=== PATIENT | female | born 1945 | race Caucasian/White ===

== ENCOUNTER 2019-02-12 16:08 | Emergency (ER) | payer MEDICARE, MEDICAID ==
[~2019-02-12] VITALS: Ht 167.6 cm; Wt 68.2 kg
[~2019-02-12 16:08] MED LIST: ASPIRIN 32325 MG/TAB PO; BENADRYL25 M2 PO; BIAXIN 500MG T500 MG PO; DAZIDOX10 MG PO; FLAGYL500 MG PO; NAPROSYN500 MG PO; NORCO 325 MG-7.1 TAB PO; PRILOSEC 20MG20 MG PO; TYLENOL 325MG325 MG PO; ULTRAM 50MG TAB50 MG PO
[2019-02-12 16:22] VITALS: TEMP 98.5
[2019-02-12 17:48] LABS: BASO % 0.6 % (0.0-2.0); EOS # 0.1 (0.0-0.7); EOS % 1.4 % (0-4.0); GRAN # 3.8 (1.4-6.5); GRAN % 52.8 % (42.2-75.2); HEMATOCRIT 42.7 % (37.0-47.0); HEMOGLOBIN 13.4 g/dl (12.5-16.0); LYMPH # 2.5 (1.2-3.4); LYMPH % 34.9 % (20.0-51.0); MEAN CELL VOLUME 95 fl (80.0-100.0); MEAN CORPUSCULAR HEMOGLOBIN 30 pg (27.0-31.0); MEAN CORPUSCULAR HGB CONC 31 g/dl (33.0-37.0); MEAN PLATELET VOLUME 9.3 fl (7.4-10.4); MONO # 0.7 (0.1-0.6); MONO % 10.2 % (1.7-9.3); PLATELET COUNT 332 K/mm3 (130-400); REDCELL DISTRIBUTION WIDTH-CV 14.9 % (11.5-14.5)
[2019-02-12 17:58] LABS: ALBUMIN 4.3 gm/dL (3.5-5.0); BILIRUBIN,TOTAL 0.4 mg/dL (0.0-1.0); C-REACTIVE PROTEIN 1.6 mg/dL (0.0-0.9); CALCIUM 10.3 mg/dL (8.4-10.2); CREATININE, serum 0.58 (0.52-1.25); POTASSIUM 3.8 mmol/L (3.4-5.0)
[2019-02-12] MEDS ORDERED: PROTONIX 40MG T40 MG PO (19:45)
[2019-02-12 20:00] VITALS: BP 177/89; PULSE 88
== END 2019-02-12 20:10 | disposition home or self-care (01) ==
LOC: COL.ER 16:08
PROVIDERS: Emergency Medicine
DX: K59.00 Constipation, unspecified (principal); M06.9 Rheumatoid arthritis, unspecified; Z90.710 Acquired absence of both cervix and uterus; Z90.89 Acquired absence of other organs; Z79.82 Long term (current) use of aspirin
CPT/HCPCS: C9113; J7030; Q9967

== ENCOUNTER 2019-03-14 12:36 | Emergency (ER) | payer MEDICARE, MEDICAID ==
[~2019-03-14] VITALS: Ht 167.6 cm; Wt 80.5 kg
[~2019-03-14 12:36] MED LIST changes: +PROTONIX 40MG T40 MG PO
[2019-03-14 12:50] VITALS: BP 121/49; TEMP 98
[2019-03-14 13:50] LABS: BASO % 0.5 % (0.0-2.0); EOS # 0.2 (0.0-0.7); EOS % 2.3 % (0-4.0); GRAN # 3.2 (1.4-6.5); HEMATOCRIT 39.6 % (37.0-47.0); HEMOGLOBIN 12.7 g/dl (12.5-16.0); LYMPH # 2.2 (1.2-3.4); LYMPH % 34.6 % (20.0-51.0); MEAN CELL VOLUME 94 fl (80.0-100.0); MEAN CORPUSCULAR HEMOGLOBIN 30 pg (27.0-31.0); MEAN CORPUSCULAR HGB CONC 32 g/dl (33.0-37.0); MEAN PLATELET VOLUME 9.2 fl (7.4-10.4); MONO # 0.8 (0.1-0.6); MONO % 12.3 % (1.7-9.3); PLATELET COUNT 282 K/mm3 (130-400); RED BLOOD COUNT 4.21 M/mm3 (4.10-5.30)
[2019-03-14 14:01] LABS: BILIRUBIN,TOTAL 0.4 mg/dL (0.0-1.0); CALCIUM 9.1 mg/dL (8.4-10.2); CREATININE, serum 0.61 (0.52-1.25); POTASSIUM 4.1 mmol/L (3.4-5.0); TOTAL PROTEIN 7.3 gm/dL (6.4-8.2)
[2019-03-14] MEDS ORDERED: LASIX 20MG TABL20 MG PO (15:01)
[2019-03-14 16:17] VITALS: PULSE 91
== END 2019-03-14 16:17 | disposition home or self-care (01) ==
LOC: COL.ER 12:36
PROVIDERS: Emergency Medicine
DX: R60.0 Localized edema (principal); Z79.82 Long term (current) use of aspirin

== ENCOUNTER → 2019-04-18 | Outpatient (CLI) | payer MEDICARE, MEDICAID ==
[~2019-04-18] MED LIST changes: +LASIX 20MG TABL20 MG PO
[2019-04-18 12:03] LABS: BASO % 0.5 % (0.0-2.0); EOS # 0.2 (0.0-0.7); GRAN # 3.2 (1.4-6.5); GRAN % 50.5 % (42.2-75.2); HEMATOCRIT 41.8 % (37.0-47.0); HEMOGLOBIN 13.5 g/dl (12.5-16.0); LYMPH # 1.8 (1.2-3.4); LYMPH % 28.9 % (20.0-51.0); MEAN CELL VOLUME 92 fl (80.0-100.0); MEAN CORPUSCULAR HEMOGLOBIN 30 pg (27.0-31.0); MEAN CORPUSCULAR HGB CONC 32 g/dl (33.0-37.0); MONO # 1.1 (0.1-0.6); MONO % 16.9 % (1.7-9.3); PLATELET COUNT 333 K/mm3 (130-400); RED BLOOD COUNT 4.54 M/mm3 (4.10-5.30); REDCELL DISTRIBUTION WIDTH-CV 14.8 % (11.5-14.5)
[2019-04-18 12:25] LABS: ALBUMIN 4.4 gm/dL (3.5-5.0); BILIRUBIN,TOTAL 0.4 mg/dL (0.0-1.0); CHOLESTEROL RISK RATIO 4.9; CREATININE, serum 0.72 (0.52-1.25); POTASSIUM 4.1 mmol/L (3.4-5.0); TOTAL PROTEIN 8.2 gm/dL (6.4-8.2)
[2019-04-18 12:27] LABS: ERYTHROCYTE SEDIMENTATION RATE 46 mm/hr (0-30)
== END ==
LOC: COL.LAB 11:17
PROVIDERS: Nurse Practitioner Adult Health
DX: Z51.81 Encounter for therapeutic drug level monitoring (principal); M05.9 Rheumatoid arthritis with rheumatoid factor, unspecified; Z79.899 Other long term (current) drug therapy

== ENCOUNTER → 2019-08-06 | Outpatient (CLI) | payer MEDICARE, MEDICAID ==
[2019-08-06 13:36] LABS: BASO % 0.4 % (0.0-2.0); EOS # 0.1 (0.0-0.7); EOS % 1.1 % (0-4.0); GRAN % 52.6 % (42.2-75.2); HEMATOCRIT 38.5 % (37.0-47.0); HEMOGLOBIN 12.4 g/dl (12.5-16.0); LYMPH # 2.7 (1.2-3.4); LYMPH % 36.1 % (20.0-51.0); MEAN CELL VOLUME 93 fl (80.0-100.0); MEAN CORPUSCULAR HEMOGLOBIN 30 pg (27.0-31.0); MEAN CORPUSCULAR HGB CONC 32 g/dl (33.0-37.0); MEAN PLATELET VOLUME 8.6 fl (7.4-10.4); MONO # 0.7 (0.1-0.6); MONO % 9.5 % (1.7-9.3); PLATELET COUNT 398 K/mm3 (130-400); RED BLOOD COUNT 4.13 M/mm3 (4.10-5.30); REDCELL DISTRIBUTION WIDTH-CV 15.9 % (11.5-14.5)
[2019-08-06 13:52] LABS: ALBUMIN 4.4 gm/dL (3.5-5.0); BILIRUBIN,TOTAL 0.5 mg/dL (0.0-1.0); CALCIUM 9.4 mg/dL (8.4-10.2); CREATININE, serum 0.69 (0.52-1.25); TOTAL PROTEIN 8.2 gm/dL (6.4-8.2)
== END ==
LOC: COL.LAB 13:04
PROVIDERS: Nurse Practitioner Adult Health
DX: Z51.81 Encounter for therapeutic drug level monitoring (principal)

== ENCOUNTER 2019-08-20 12:30 | Outpatient (RCR) | payer MEDICARE, MEDICAID | END 2019-11-04 | disposition still patient (30) | LOC: WSPT | DX: I89.0 Lymphedema, not elsewhere classified (principal) ==

== ENCOUNTER 2019-12-10 16:28 | Inpatient (IN) | payer MEDICARE, MEDICAID ==
[~2019-12-10] VITALS: Ht 165.1 cm; Wt 77.9 kg
[2019-12-10 16:51] LABS: BASO # 0.1 (0.0-0.2); BASO % 0.5 % (0.0-2.0); EOS # 0.1 (0.0-0.7); EOS % 0.5 % (0-4.0); GRAN # 7.4 (1.4-6.5); GRAN % 75.9 % (42.2-75.2); LYMPH # 1.7 (1.2-3.4); LYMPH % 17.6 % (20.0-51.0); MEAN CELL VOLUME 91 fl (80.0-100.0); MEAN CORPUSCULAR HGB CONC 31 g/dl (33.0-37.0); MEAN PLATELET VOLUME 9.1 fl (7.4-10.4); MONO # 0.5 (0.1-0.6); MONO % 5.2 % (1.7-9.3); PLATELET COUNT 327 K/mm3 (130-400); RED BLOOD COUNT 3.07 M/mm3 (4.10-5.30); REDCELL DISTRIBUTION WIDTH-CV 15.3 % (11.5-14.5)
[2019-12-10 16:57] LABS: HEMOGLOBIN 8.7 g/dl (12.5-16.0); MEAN CORPUSCULAR HEMOGLOBIN 28 pg (27.0-31.0)
[2019-12-10 17:14] LABS: ALBUMIN 2.9 gm/dL (3.5-5.0); BILIRUBIN,TOTAL 0.4 mg/dL (0.0-1.0); C-REACTIVE PROTEIN 2.3 mg/dL (0.0-0.9); CALCIUM 8.2 mg/dL (8.4-10.2); CREATININE, serum 0.72 (0.52-1.25); POTASSIUM 4.1 mmol/L (3.4-5.0); TOTAL PROTEIN 6.1 gm/dL (6.4-8.2)
[2019-12-10] MEDS ORDERED: BUMEX2 MG PO (17:30)
[2019-12-10] MEDS ORDERED: ATHLETE'S FOOT1% TP (17:31)
[2019-12-10] MEDS ORDERED: PEPCID 20MG TAB20 MG PO (17:32)
[2019-12-10] MEDS ORDERED: MOBIC 7.5MG7.5 MG PO (17:33)
[2019-12-10] MEDS ORDERED: NYAMYC100000 U/G TP (17:33)
[2019-12-10] MEDS ORDERED: OXYCONTIN 20MG20 MG PO (17:34)
[2019-12-10] MEDS ORDERED: K-TAB20 PO (17:35)
[2019-12-10] MEDS ORDERED: RINVOQ ER15 MG PO ×2 (17:36→23:27)
[2019-12-10 18:09] LABS: COLLECTION METHOD CLEAN CATCH
[2019-12-10 18:25] LABS: MUCOUS Present /lpf; PH 6 (5-8); URINE APPEARANCE Hazy; URINE BACTERIA Rare /hpf; URINE BILIRUBIN Negative (NEGATIVE); URINE BLOOD Negative (NEGATIVE); URINE COLOR Yellow; URINE GLUCOSE Negative (NEGATIVE); URINE KETONE Negative (NEGATIVE); URINE LEUKOCYTE ESTERASE Trace (NEGATIVE); URINE NITRATE Negative (NEGATIVE); URINE PROTEIN(semi-quant) Negative (NEGATIVE)
[2019-12-10] MEDS ORDERED: XELJANZ5 MG PO (18:50)
[2019-12-10 20:32] VITALS: BP 108/69; PULSE 105; TEMP 98
--- NOTE | 2019-12-10 21:10 | NUR ---
Patient arrived to medical floor at 2030. Patient up to bedside commode x2 assist. Assessment complete. Lungs clear. Heart sounds normal. Bowels active x4. Pulses present throughout. Bilateral lower extremity edema +2. Patient has left lower extremity dressing in place from foot to below her knee. Refused to allow staff to remove to be assessed. Reports dressing redone today. Right lower extremity has mepilex in place to ankle. Patient reports hit on wheel chair. Refused to allow assessment. INT right forearm without complications. IV fluids will be started as ordered. Patient refused SHAQUILLE/SCD. Medication list from home-unable to state last dates and times. Orientated to medical floor. All questions answered. Attempted admission assessment, answered what patient was able to. Denies other needs at this time. Will monitor.
[2019-12-10 22:19] LABS: HEMATOCRIT 25.1 % (37.0-47.0); HEMOGLOBIN 7.7 g/dl (12.5-16.0)
[2019-12-10 23:59] VITALS: BP 102/63; PULSE 84; TEMP 98.3
[2019-12-11] VITALS (18 sets, daily range): BP systolic 84–125; BP diastolic 42–63; PULSE 68–113; TEMP 97.2–98.5
--- NOTE | 2019-12-11 00:35 | NUR ---
Resting in bed. Denies needs. Call light in reach.
--- NOTE | 2019-12-11 02:37 | NUR ---
Resting in bed. Denies needs. Call light in reach.
--- NOTE | 2019-12-11 06:03 | NUR ---
Patient had uneventful night. Resting in bed this AM. Call light in reach.
--- NOTE | 2019-12-11 07:04 | NUR ---
Report given to NAILA Erwin
[2019-12-11 07:10] LABS: BASO # 0.1 (0.0-0.2); BASO % 0.5 % (0.0-2.0); EOS # 0.3 (0.0-0.7); EOS % 3.4 % (0-4.0); GRAN # 4.2 (1.4-6.5); GRAN % 44.3 % (42.2-75.2); LYMPH # 4.1 (1.2-3.4); LYMPH % 43.3 % (20.0-51.0); MEAN CELL VOLUME 93 fl (80.0-100.0); MEAN CORPUSCULAR HGB CONC 32 g/dl (33.0-37.0); MEAN PLATELET VOLUME 9.4 fl (7.4-10.4); MONO # 0.8 (0.1-0.6); MONO % 8.2 % (1.7-9.3); PLATELET COUNT 276 K/mm3 (130-400); RED BLOOD COUNT 2.33 M/mm3 (4.10-5.30); REDCELL DISTRIBUTION WIDTH-CV 15.6 % (11.5-14.5)
[2019-12-11 07:17] LABS: HEMATOCRIT 21.6 % (37.0-47.0); HEMOGLOBIN 6.8 g/dl (12.5-16.0); MEAN CORPUSCULAR HEMOGLOBIN 29 pg (27.0-31.0)
[2019-12-11 07:21] LABS: ALBUMIN 2.4 gm/dL (3.5-5.0); BILIRUBIN,TOTAL 0.3 mg/dL (0.0-1.0); CALCIUM 7.9 mg/dL (8.4-10.2); CREATININE, serum 0.66 (0.52-1.25); POTASSIUM 4.4 mmol/L (3.4-5.0); TOTAL PROTEIN 5.1 gm/dL (6.4-8.2)
[2019-12-11 07:28] LABS: IRON,SERUM 84 ug/dL (35-150)
[2019-12-11 07:55] LABS: TOTAL IRON BINDING CAPACITY 272 ug/dL (265-497)
--- NOTE | 2019-12-11 09:14 | NUR ---
PATIENT IS CONFUSED. NEXT OF KIN DOES NOT ANSWER HER PHONE. CONSENT CAN NOT BE SIGNED YET
--- NOTE | 2019-12-11 09:58 | NUR ---
Newswriter attended clinical rounds with the team. The patient is alert and oriented. Hospitalist discussed and answered questions with the patient. After rounds, the patient met with the patient to complete initial intake. The patient lives alone in [place]. The patient has a walker and wheelchair. The patient is independent with ADLs. The patient receives assistance from Latricia Gates # [phone] who is employed by [employer] with the [facility] program. The patient's PCP is Dr. Erinn Matthews and patient has medications delivered from [facility]. The patient plans to return home at discharge. The patient would like HHS but the patient is obs at this time. SW attempted to contact the SW with Dr. Matthews's office regarding HHS, left message. The patient does not have advanced directives in the EMR. The patient reports she had three sons, Luciano Alvarez, Miguelangel and Iftikhar Corcker. Iftikhar lives somewhere in [facility] and states Luciano and Miguelangel live "somewhere around here." The patient states she has not had contact with ther sons in over 10 years and she does not want them to make any decision for her. The patient completed a DPOA-HC and designated Latricia. ERNA contacted Latricia to discuss DPOA-HC. She was agreeable to being designated. ERNA and NAILA CARBAJAL witnessed. A copy was placed in the chart. Original and copies provided to the patient. Will continue to follow.
--- NOTE | 2019-12-11 10:20 | NUR ---
The patient is now inpatient status. ERNA met with the patient to present Medicare.gov's list of INTERIOR DESIGN PROGRAM CHAIR in [place]. The patient chose [facility] INTERIOR DESIGN PROGRAM CHAIR. ERNA faxed referral. Will continue to monitor.
--- NOTE | 2019-12-11 14:36 | NUR ---
PATIENT CAME BACK FROM [facility] WITH A STABLE BLOOD PRESSURE. VITALS ALL LOOKED OK AND STABLE. IT WAS FOUND IN THE EGD THAT A DUODENAL ULCER WAS FOUND AND INJECTED WITH EPINEPHRINE. BLOOD PRESSURE WAS 130/85. PATIENT IS AWAKE, ALERT, AND ORIENTATED.
--- NOTE | 2019-12-11 19:11 | NUR ---
PATIENT HAS HAD AN EVENTFUL DAY. PATIENT HAS BEEN UP AND DOWN NUMEROUS TIMES TO USE THE BATHROOM. PATIENT IS ON HER SECOND UNIT OF BLOOD BECAUSE OF HGB DROPPING TO 6.8. HER OCCULT STOOL WAS NEGATIVE. PATIENT HAS NOT HAD A BOWEL MOVEMENT TODAY. SHE WENT FOR AN EGD THAT SHOWED A DUODNEAL ULCER THAT WAS INJECTED WITH EPINEPHRINE. PATIENT HAS SORES/WOUNDS ON HER LEGS BUT WILL NOT LET US VEIW THEM. PATIENT IS UP ONE ASSIST TO THE BEDSIDE COMMODE. PATIENT COMPLAINED ABOUT THE BEDPAN BECAUSE WHEN SHE GOT BACK FROM ENDO TODAY SHE WAS PLACED ON THE BEDPAN AND THIS NURSE DID NOT TELL ANYONE THAT HE WAS ON THE BEDPAN. PATIENT HAS BEEN ALERT AND ORIENTATED TODAY BUT IT HARD OF HEARING AND SOMETIMES HARD TO UNDERSTAND. PATIENT HAS NOT REPORTED ANY PAIN. PATIENT IS ASLEEP AND BLOOD IS INFUSING. WILL REPORT OFF TO CARDIOVASCULAR OPERATING ROOM NURSE.
--- NOTE | 2019-12-11 22:48 | NUR ---
Pt resting in bed, denies pain at this time. pt denies nausea or vomiting as well. stated that she did not eat dinner because she did not like the food. heart sounds are normal, lung sounds have audible wheezing. pt denies shortness of breath, on room air. bilaterall legs are wrapped and pt would not allow removal or assessment of legs. wound on the right heal that is covered. no other needs at this time, will continue to monitor.
--- NOTE | 2019-12-12 01:36 | NUR ---
Pt reported pain all over, gave tylenol prn per JUN. assisted pt to the bedside commode and repositioned back in bed.
[2019-12-12 03:00] VITALS: BP 100/42; PULSE 76; TEMP 98.1
--- NOTE | 2019-12-12 06:04 | NUR ---
pt sleeping in bed most of the night, used the bedside commode several times. gave tylenol prn per JUN for pain. will continue to monitor.
[2019-12-12 07:19] LABS: BASO # 0.1 (0.0-0.2); BASO % 0.6 % (0.0-2.0); EOS # 0.5 (0.0-0.7); GRAN # 5.4 (1.4-6.5); GRAN % 55.6 % (42.2-75.2); LYMPH # 2.9 (1.2-3.4); LYMPH % 30.2 % (20.0-51.0); MEAN CELL VOLUME 91 fl (80.0-100.0); MEAN CORPUSCULAR HGB CONC 33 g/dl (33.0-37.0); MEAN PLATELET VOLUME 9.4 fl (7.4-10.4); MONO # 0.8 (0.1-0.6); MONO % 8.4 % (1.7-9.3); PLATELET COUNT 285 K/mm3 (130-400); RED BLOOD COUNT 3.15 M/mm3 (4.10-5.30); REDCELL DISTRIBUTION WIDTH-CV 15.1 % (11.5-14.5)
[2019-12-12 07:22] LABS: HEMOGLOBIN 9.3 g/dl (12.5-16.0); MEAN CORPUSCULAR HEMOGLOBIN 30 pg (27.0-31.0)
[2019-12-12 07:23] LABS: HEMATOCRIT 28.6 % (37.0-47.0)
[2019-12-12 07:42] LABS: CREATININE, serum 0.62 (0.52-1.25); POTASSIUM 3.5 mmol/L (3.4-5.0)
[2019-12-12 08:02] VITALS: BP 103/40; PULSE 80; TEMP 98.2
--- NOTE | 2019-12-12 09:19 | NUR ---
The patient's nurse informed this Glove Factory Sewer that the patient would like [facility] vs [facility]. ERNA to fax referral.
--- NOTE | 2019-12-12 09:48 | NUR ---
Pt assessment completed and charted. Medications administered per jun. Pt is uncooperative w/ care, difficult to understand when speaking sometimes, cursing at this nurse and staff. Pt refuses to lay in bed, states she "has to be moving around". Pt refuses to move to recliner. Pt refused breakfast except for banana but stated she had some indigestion. Pt had EGD yesterday. Pt is alert and mostly oriented, needs constant redirection, doesn't follow conversation. LH IV w/ NS at 100ml/hr running w/o complications. Pt on room air, breathing is even and unlabored, denies SOB, N/V/D, dizziness. Pt had small BM, 2 assist w/ gait belt to bedside commode. Rt heel has mepilex dressing. Bilateral legs covered and wrapped, per pt was done on Sunday and is to stay wrapped for 1 week, pt will not allow wraps/dressing to be removed for assessment. LLE > RLE for edema. BS active, LS cta, heart RRR. Awaiting therapy to work with patient and then figure out POC/discharge. Dr. Matthews called this nurse to discuss having [facility] instead of [facility], this nurse notified Sw and hospitalist. No further needs at this time. Call light within reach. Bed alarm on.
--- NOTE | 2019-12-12 11:07 | NUR ---
First visit from the hotel operations manager. No needs right now.
[2019-12-12 11:32] VITALS: BP 84/60; PULSE 87; TEMP 97.8
[2019-12-12 13:19] LABS: HEMOGLOBIN 9.6 g/dl (12.5-16.0)
[2019-12-12 14:22] VITALS: BP 105/54
[2019-12-12] MEDS ORDERED: FERROUS SU325 MG/TAB PO (14:25)
[2019-12-12] MEDS ORDERED: PROTONIX 40MG T40 MG PO (14:28)
[2019-12-12] MEDS ORDERED: TYLENOL 500MG500 MG PO (14:28)
[2019-12-12] MEDS ORDERED: ZOFRAN ODT4 MG PO (14:29)
--- NOTE | 2019-12-12 15:15 | NUR ---
Pt more cooperative throughout day, pt 1 assist to bedside commode, up a couple of times, good output. Pt tolerated lunch well. Low BP obtained for noon vitals, rechecked, VSS. No further needs.
--- NOTE | 2019-12-12 16:13 | NUR ---
Pt dischrge instructions discussed w/ patient family member who verbalized understanding. All questions answered. LFA and RFA INT IV dc'd w/o complications and catheter tips intact. Pt had questions regarding insurance, Caroline w/ ERNA came in to talk to patient and answer all questions. Pt escorted down to ER w/ all her belongings by WC. No further needs expressed.
--- NOTE | 2019-12-12 16:31 | NUR ---
The patient is to discharge home today, 12/11 with [facility]. PT/OT/Nursing. [facility]. The patient has had negative behavior towards staff. Closing Manager contacted Merle the ERNA at Dr. Matthews's office to provide this update. Dr. Matthews's nurse choses [facility] for the patient. ERNA faxed referral. [facility] accepts the patient for services. ERNA updated Merle. ERNA faxed [facility] discharge orders. There are no additional needs at this time.
--- NOTE | 2019-12-22 14:31 | NUR ---
Pt called me today remembering that I had told her to call if she needed anything from us. Pt is not happy with her home health care because they will not work with her on her compression air stocking. I have spoken with Latricia her DP-HC, the wound care clinic, and with [facility]. Ivania fired [facility] on Monday 12/18. She has an appt with Dr Luo on 01/06 as may change doctors. Latricia has indicated that pt is non-compliant with some of her and does not do a lot of things herself. Ivania kept saying "I need home health to clean my house and help me with the air stockings". She is not interested in PT/OT. I also spoke with Caroline ROSALES about this situation. I left it with Ivania that if she and Latricia had another home health agency that they would like for us to send a referral to, they just need to let us know. I did bring up the subject of a facility for her to move to but she was not interested in that.
--- NOTE | 2019-12-24 14:00 | NUR ---
Pt has made multiple calls to my phone now demanding help and that I listen to her. Today she is insisting that medicare will pay for everything that she needs. I had told her yesterday, and I restated today that we will be happy to send a referral to a home health agency of her choosing to provide services for her based on their acceptance. [facility] did advise me on 12/21 that she had fired them because they weren't doing what she wanted. Pt has called multiple times very angry using derogatory names demanding I do something about this. I have explained to her that Medicare has rules that all agencies must follow. I can only help her at this point with a referral to home health agency of her choosing. This has been coordinated with Caroline ROSALES. I have tried to make this clear to Ivania but she continues to call in the same manner.
--- NOTE | 2019-12-25 11:14 | NUR ---
I recieved another call from pt today. She tells me to listen to her and not talk. She did not like the home health people who came into her house and she told them to leave and not come back--she insists that she did not fire them. I repeated one more time that I would help her by sending referral to another home health agency of her choice. She replied that I was not helping her and hung up.
--- NOTE | 2019-12-25 11:22 | NUR ---
Truck And Transport Mechanic collaborated with RN, Roopa about patient. Roopa reports she did a discharge follow up call with patient and she has fired her home health agency and has been non compliant with follow up. ERNA notifed ERNA Bloom at [facility] and also made report to APS (intake [id number]).
== END 2019-12-12 16:15 | disposition home or self-care (01) | DRG 379 ==
LOC: COL.ER 16:28 → MEDICAL 18:14
PROVIDERS: Family Medicine; Physician Assistant; ADMIT Internal Medicine
DX: K26.4 Chronic or unspecified duodenal ulcer with hemorrhage (principal); I95.9 Hypotension, unspecified; R53.81 Other malaise; G89.29 Other chronic pain; K59.00 Constipation, unspecified; D50.0 Iron deficiency anemia secondary to blood loss (chronic); M06.9 Rheumatoid arthritis, unspecified; Z90.89 Acquired absence of other organs; Z96.651 Presence of right artificial knee joint; Z98.1 Arthrodesis status; Z87.891 Personal history of nicotine dependence
CPT/HCPCS: 99223-AI; 99233-AI; 99239; C9113; G0378; J0171; J2405; J2704; J7030; J7120; P9016

== ENCOUNTER → 2020-04-21 | Outpatient (CLI) | payer MEDICARE, MEDICAID ==
[~2020-04-21] MED LIST changes: +ATHLETE'S FOOT1% TP; +BUMEX2 MG PO; +FERROUS SU325 MG/TAB PO; +K-TAB20 PO; +MOBIC 7.5MG7.5 MG PO; +NYAMYC100000 U/G TP; +OXYCONTIN 20MG20 MG PO; +PEPCID 20MG TAB20 MG PO; +RINVOQ ER15 MG PO; +TYLENOL 500MG500 MG PO; +XELJANZ5 MG PO; +ZOFRAN ODT4 MG PO
== END ==
LOC: ZCOL.LAB 16:26
DX: I83.009 Varicose veins of unspecified lower extremity with ulcer of unspecified site (principal)

== ENCOUNTER 2020-06-18 11:38 | Emergency (ER) | payer MEDICARE, MEDICAID ==
[~2020-06-18] VITALS: Ht 167.6 cm; Wt 72.7 kg
[2020-06-18 11:41] VITALS: TEMP 97.4
[2020-06-18 12:47] LABS: BASO % 0.3 % (0.0-2.0); EOS % 0.5 % (0-4.0); GRAN # 5.1 (1.4-6.5); GRAN % 79.1 % (42.2-75.2); HEMOGLOBIN 12.1 g/dl (12.5-16.0); LYMPH # 0.7 (1.2-3.4); LYMPH % 10.8 % (20.0-51.0); MEAN CELL VOLUME 92 fl (80.0-100.0); MEAN CORPUSCULAR HEMOGLOBIN 31 pg (27.0-31.0); MEAN CORPUSCULAR HGB CONC 33 g/dl (33.0-37.0); MEAN PLATELET VOLUME 9.1 fl (7.4-10.4); MONO # 0.6 (0.1-0.6); PLATELET COUNT 337 K/mm3 (130-400); RED BLOOD COUNT 3.97 M/mm3 (4.10-5.30); REDCELL DISTRIBUTION WIDTH-CV 15.2 % (11.5-14.5)
[2020-06-18 12:52] LABS: HEMATOCRIT 36.6 % (37.0-47.0)
[2020-06-18 12:57] LABS: ALANINE AMINOTRANSFERASE 18 U/L (4-34); ALBUMIN 4.1 gm/dL (3.5-5.0); ALKALINE PHOSPHATASE 133 U/L (50-136); ANION GAP 8 mmol/L (7-16); AST,SGOT 38 U/L (15-37); BILIRUBIN,TOTAL 0.8 mg/dL (0.0-1.0); BLOOD UREA NITROGEN 12 mg/dL (7-17); CALCIUM 9.3 mg/dL (8.4-10.2); CARBON DIOXIDE 27 mmol/L (22-30); CHLORIDE 108 mmol/L (98-107); GLUCOSE 110 mg/dL (74-106); POTASSIUM 3.7 mmol/L (3.4-5.0); SODIUM 142 mmol/L (137-145); TOTAL PROTEIN 8.1 gm/dL (6.4-8.2)
[2020-06-18 13:11] LABS: TROPONIN-I < 0.012 ng/mL (0.000-0.035)
[2020-06-18 14:30] LABS: COLLECTION METHOD CLEAN CATCH
[2020-06-18 14:38] LABS: MUCOUS Present /lpf; PH 5 (5-8); URINE APPEARANCE Hazy; URINE BACTERIA Rare /hpf; URINE BILIRUBIN Negative (NEGATIVE); URINE BLOOD 2+ (NEGATIVE); URINE COLOR Yellow; URINE GLUCOSE Negative (NEGATIVE); URINE KETONE Trace (NEGATIVE); URINE LEUKOCYTE ESTERASE 1+ (NEGATIVE); URINE NITRATE Negative (NEGATIVE); URINE PROTEIN(semi-quant) Negative (NEGATIVE); URINE RBC 20-50 /hpf; URINE UROBILINOGEN >=4.0 mg/dL (NEGATIVE)
[2020-06-18] MEDS ORDERED: CIPRO 250MG TA250 MG PO (14:43)
[2020-06-18 16:14] VITALS: BP 119/71; PULSE 81
== END 2020-06-18 14:57 | disposition home or self-care (01) ==
LOC: COL.ER 11:38
PROVIDERS: Physician Assistant
DX: G89.29 Other chronic pain (principal); M25.552 Pain in left hip; N39.0 Urinary tract infection, site not specified; R41.82 Altered mental status, unspecified; Z88.0 Allergy status to penicillin

== ENCOUNTER 2020-06-26 00:57 | Emergency (ER) | payer MEDICARE, MEDICAID ==
[~2020-06-26] VITALS: Ht 162.6 cm; Wt 90.9 kg
[~2020-06-26 00:57] MED LIST changes: +CIPRO 250MG TA250 MG PO
[2020-06-26 02:55] VITALS: BP 110/66; PULSE 86; TEMP 98
== END 2020-06-26 02:55 | disposition home or self-care (01) ==
LOC: COL.ER 00:57
DX: M25.552 Pain in left hip (principal); G89.29 Other chronic pain; I10 Essential (primary) hypertension; Z90.89 Acquired absence of other organs; Z87.891 Personal history of nicotine dependence; Z88.0 Allergy status to penicillin
CPT/HCPCS: J2060; J3010

== ENCOUNTER → 2020-07-30 | Outpatient (CLI) | payer OTHER, MEDICAID ==
[~2020-07-30] MED LIST changes: +CLEOCIN HCL300 MG PO
== END ==
LOC: ZCOL.LAB 10:46
DX: D75.81 Myelofibrosis (principal)

== ENCOUNTER 2020-08-26 12:57 | Emergency (ER) | payer MEDICARE, MEDICAID ==
[~2020-08-26] VITALS: Ht 167.6 cm; Wt 72.7 kg
[~2020-08-26 12:57] MED LIST changes: -CLEOCIN HCL300 MG PO
[2020-08-26 13:12] VITALS: BP 120/70; PULSE 98; TEMP 98.2
[2020-08-26 14:02] LABS: BASO # 0.1 (0.0-0.2); BASO % 0.7 % (0.0-2.0); EOS # 0.2 (0.0-0.7); EOS % 2.5 % (0-4.0); GRAN # 6.8 (1.4-6.5); GRAN % 69.5 % (42.2-75.2); HEMATOCRIT 37.6 % (37.0-47.0); HEMOGLOBIN 11.4 g/dl (12.5-16.0); LYMPH # 1.7 (1.2-3.4); LYMPH % 17.1 % (20.0-51.0); MEAN CELL VOLUME 94 fl (80.0-100.0); MEAN CORPUSCULAR HEMOGLOBIN 29 pg (27.0-31.0); MEAN CORPUSCULAR HGB CONC 30 g/dl (33.0-37.0); MEAN PLATELET VOLUME 9.1 fl (7.4-10.4); MONO % 9.9 % (1.7-9.3); PLATELET COUNT 403 K/mm3 (130-400); REDCELL DISTRIBUTION WIDTH-CV 16.1 % (11.5-14.5)
[2020-08-26 14:05] LABS: INR 1.2 (0.8-3.0); PROTHROMBIN TIME 12.8 SECONDS (9.7-12.8)
[2020-08-26 14:08] LABS: PARTIAL THROMBOPLASTIN TIME 26.9 SECONDS (26.0-37.0)
[2020-08-26 14:23] LABS: ALBUMIN 3.7 gm/dL (3.5-5.0); BILIRUBIN,TOTAL 0.4 mg/dL (0.0-1.0); CALCIUM 8.9 mg/dL (8.4-10.2); CREATININE, serum 0.66 (0.52-1.25); TOTAL PROTEIN 7.8 gm/dL (6.4-8.2)
[2020-08-26] MEDS ORDERED: CLEOCIN HCL300 MG PO (15:22)
[2020-08-26 15:23] LABS: D-DIMER > 5250.00 ng/mLDDu (200-230)
== END 2020-08-26 15:45 | disposition home or self-care (01) ==
LOC: COL.ER 12:57
PROVIDERS: Emergency Medicine
DX: M79.605 Pain in left leg (principal); M79.89 Other specified soft tissue disorders; R79.1 Abnormal coagulation profile; Z98.1 Arthrodesis status

== ENCOUNTER 2021-04-18 23:07 | Emergency (ER) | payer MEDICARE, MEDICAID ==
[~2021-04-18] VITALS: Ht 167.6 cm; Wt 64.1 kg
[~2021-04-18 23:07] MED LIST changes: +CLEOCIN HCL300 MG PO
[2021-04-18 23:10] VITALS: TEMP 98
[2021-04-18 23:56] LABS: ALBUMIN 3.2 gm/dL (3.4-4.8); BILIRUBIN,TOTAL 0.3 mg/dL (0.2-1.2); CALCIUM 8.9 mg/dL (8.4-10.2); CREATININE, serum 0.71 mg/dL (0.57-1.11); POTASSIUM 4.1 mmol/L (3.5-4.5); TOTAL PROTEIN 7.2 gm/dL (6.2-8.1)
[2021-04-19 01:57] VITALS: BP 145/77; PULSE 72
== END 2021-04-19 01:57 | disposition home or self-care (01) ==
LOC: COL.ER 23:07
PROVIDERS: Emergency Medicine
DX: R60.0 Localized edema (principal); R79.0 Abnormal level of blood mineral; M25.50 Pain in unspecified joint; G89.29 Other chronic pain; Z98.1 Arthrodesis status; Z79.891 Long term (current) use of opiate analgesic
CPT/HCPCS: J1940

== ENCOUNTER 2021-08-08 03:45 | Emergency (ER) | payer MEDICARE, MEDICAID ==
[~2021-08-08] VITALS: Ht 167.6 cm; Wt 81.8 kg
[2021-08-08 03:46] VITALS: TEMP 98.1
[2021-08-08 04:08] LABS: BASO % 0.4 % (0.0-2.0); EOS # 0.1 K/mm3 (0.0-0.7); EOS % 0.7 % (0.0-4.0); GRAN % 66.7 % (42.2-75.2); HEMOGLOBIN 11.9 g/dl (12.5-16.0); LYMPH # 1.2 K/mm3 (1.2-3.4); LYMPH % 15.7 % (20.0-51.0); MEAN CELL VOLUME 91 fl (80.0-100.0); MEAN CORPUSCULAR HEMOGLOBIN 30 pg (27-31); MEAN CORPUSCULAR HGB CONC 33 g/dl (33.0-37.0); MEAN PLATELET VOLUME 9.1 fl (7.4-10.4); MONO # 1.2 K/mm3 (0.1-0.6); MONO % 16.4 % (1.7-9.3); PLATELET COUNT 314 K/mm3 (130-400); RED BLOOD COUNT 3.92 M/mm3 (4.10-5.30); REDCELL DISTRIBUTION WIDTH-CV 15.6 % (11.5-14.5)
[2021-08-08 04:16] LABS: HEMATOCRIT 35.7 % (37.0-47.0)
[2021-08-08 04:22] LABS: ALBUMIN 3.4 gm/dL (3.4-4.8); BILIRUBIN,TOTAL 0.3 mg/dL (0.2-1.2); CREATININE, serum 0.84 mg/dL (0.57-1.11); POTASSIUM 3.7 mmol/L (3.5-4.5)
[2021-08-08 04:28] LABS: TROPONIN-I 0.01 ng/mL (0.00-0.033)
[2021-08-08 05:20] LABS: COLLECTION METHOD CLEAN CATCH
[2021-08-08 05:29] LABS: PH 7 (5-8); SQUAMOUS EPITHELIAL 0-2 /hpf (0-10); URINE APPEARANCE Clear (CLEAR/HAZY); URINE BACTERIA None Seen /hpf (NONE SEEN); URINE BILIRUBIN Negative (NEGATIVE); URINE BLOOD 1+ (NEGATIVE); URINE COLOR Straw (YELLOW); URINE GLUCOSE Negative (NEGATIVE); URINE KETONE Negative (NEGATIVE); URINE LEUKOCYTE ESTERASE Negative (NEGATIVE); URINE NITRATE Negative (NEGATIVE); URINE PROTEIN(semi-quant) Negative (NEGATIVE); URINE UROBILINOGEN Negative (NEGATIVE)
[2021-08-08] MEDS ORDERED: CLEOCIN HCL300 MG PO ×2 (06:40→08:29)
[2021-08-08 08:20] VITALS: BP 115/50; PULSE 84
--- NOTE | 2021-08-08 11:01 | NUR ---
transfer worker met with patient after receiving consult. Patient reports that she was living at [facility] "independent living" but checked herself out. Since then, she has been living on her own in an apartment. Patient states that she was walking until she got the infection in her legs and since then has been wheelchair bound. Per ER nursing staff, the patient is able to transfer herself. Patient reports that she currently has someone coming in to her home twice a week to assit with showering and physical therapy, however the patient is unable to tell me what agency it is with. She reports to being able to "cook her own meals, do her own laundry and her own dishes". Patient relies on [facility] tranportation to get to and from appointments and shopping. Patient reports that her emergency contact Larticia ([phone]) was her elect equip maint eng for a long time but hasn't been "around recently". Attempt made to contact Latricia and message left. Patient states that she has 3 sons but doesn't have anything to do with them because "they're bad people". She does not know where they live and has no phone numbers for them. She is able to provide me their names ; Luciano and Miguelangel Kim and Iftikhar Abelino. SW contacted DARNELL Martinez at [facility] who advises that the patient is not established at their clinic. ER nursing staff had the patients PCP listed as Dr. Erinn Matthews. Contact made with DARNELL Fernandez at [facility] who has a note in the patients chart that in March of 2020 the patient switched PCP to . Message left for Dr.Shamburgs YOO. Patient is to discharge home today. LIP CUTTER AND SCORER contacted [facility] transportation to pick the patient up and EMS will meet the patient at her apartment for transfer assistance. APS report made: C#[id number]
== END 2021-08-08 10:28 | disposition home or self-care (01) ==
LOC: COL.ER 03:45
PROVIDERS: Emergency Medicine
DX: L03.116 Cellulitis of left lower limb (principal); R79.1 Abnormal coagulation profile; Z88.0 Allergy status to penicillin; Z20.822 Contact with and (suspected) exposure to COVID-19
CPT/HCPCS: Q9967

== ENCOUNTER 2021-12-23 12:53 | Inpatient (IN) | payer MEDICARE, MEDICAID ==
[~2021-12-23] VITALS: Ht 167.6 cm; Wt 72.7 kg
[~2021-12-23 12:53] MED LIST changes: +AMOXICILLIN 8751 TAB PO; +CELEBREX 1100 MG/CAP PO; +DOXYCYCLINE 10100 MG PO; +K-DUR20 MEQ PO; +LIPITOR 10MG10 MG PO; +PROBIOTIC BLEN1 EACH PO
[2021-12-23 14:45] LABS: BASO % 0.5 % (0.0-2.0); EOS # 0.1 K/mm3 (0.0-0.7); EOS % 1.1 % (0.0-4.0); GRAN # 5.3 K/mm3 (1.4-6.5); GRAN % 70.4 % (42.2-75.2); HEMATOCRIT 37.8 % (37.0-47.0); HEMOGLOBIN 12.2 g/dl (12.5-16.0); LYMPH # 1.2 K/mm3 (1.2-3.4); LYMPH % 16.5 % (20.0-51.0); MEAN CELL VOLUME 90 fl (80.0-100.0); MEAN CORPUSCULAR HEMOGLOBIN 29 pg (27-31); MEAN CORPUSCULAR HGB CONC 32 g/dl (33.0-37.0); MEAN PLATELET VOLUME 9.1 fl (7.4-10.4); MONO # 0.8 K/mm3 (0.1-0.6); MONO % 11.2 % (1.7-9.3); PLATELET COUNT 358 K/mm3 (130-400); RED BLOOD COUNT 4.21 M/mm3 (4.10-5.30); REDCELL DISTRIBUTION WIDTH-CV 16.5 % (11.5-14.5)
[2021-12-23 15:05] LABS: BILIRUBIN,TOTAL 0.5 mg/dL (0.2-1.2); C-REACTIVE PROTEIN 4.67 mg/dL (0.00-0.50); CALCIUM 9.2 mg/dL (8.4-10.2); CREATININE, serum 0.65 mg/dL (0.57-1.11); POTASSIUM 4.6 mmol/L (3.5-4.5); TOTAL PROTEIN 6.9 gm/dL (6.2-8.1)
[2021-12-23 15:27] LABS: ERYTHROCYTE SEDIMENTATION RATE 50 mm/hr (0-30)
--- NOTE | 2021-12-23 18:43 | NUR ---
Pt up to the floor at this time. She is hard of hearing. Unable to verify medications and patient does not have a list. Attempted to call pharmacy to verify, closed at this time. Attempted to update it based on filled medications. Pt on RA. No SOB. LLE swollen with ulcers. Does not have pain at this time. Denies further needs. Call light within reach.
[2021-12-23 19:39] VITALS: BP 100/64; PULSE 89; TEMP 98.6
--- NOTE | 2021-12-23 20:00 | NUR ---
Pt up to the bedside commode with assistance. Shift assessment completed. A&O x4. Speech difficult to understand. Left leg elevated and cold pack offered to help with burning sensation. Right antecubital peripheral line CDI, no edema or redness. Pt verbalizes that she can use her call light whenever she needs pain medication. Call light within reach.
--- NOTE | 2021-12-23 20:00 | NUR ---
Pt got assistance to use bedside commode. VSS. A&O x4. Shift assessment completed. Left leg red and with multiple open ulcers. Speech difficult to understand. Right antecubital peripheral line. Pt denies any other discomfort or pain at this moment. Fall restriction remain in place. Call light within reach.
[2021-12-24 00:12] VITALS: BP 117/70; PULSE 100; PULSE 82; TEMP 97.5
[2021-12-24 03:50] VITALS: BP 141/49; PULSE 82; PULSE 822; TEMP 97.8
--- NOTE | 2021-12-24 06:14 | NUR ---
At beginning of shift, BP low, 86/48 on left arm, 100/64 on right. Notified ALFREDO Lee. New order for 500 ml bolus given. No further hypotension noted this shift.
[2021-12-24 06:34] LABS: BASO # 0.1 K/mm3 (0.0-0.2); BASO % 0.7 % (0.0-2.0); EOS # 0.2 K/mm3 (0.0-0.7); EOS % 3.4 % (0.0-4.0); GRAN # 4.4 K/mm3 (1.4-6.5); GRAN % 63.9 % (42.2-75.2); HEMOGLOBIN 11.1 g/dl (12.5-16.0); LYMPH # 1.4 K/mm3 (1.2-3.4); LYMPH % 20.1 % (20.0-51.0); MEAN CELL VOLUME 93 fl (80.0-100.0); MEAN CORPUSCULAR HEMOGLOBIN 30 pg (27-31); MEAN CORPUSCULAR HGB CONC 32 g/dl (33.0-37.0); MEAN PLATELET VOLUME 9.8 fl (7.4-10.4); MONO # 0.8 K/mm3 (0.1-0.6); MONO % 11.6 % (1.7-9.3); PLATELET COUNT 331 K/mm3 (130-400); RED BLOOD COUNT 3.76 M/mm3 (4.10-5.30); REDCELL DISTRIBUTION WIDTH-CV 16.6 % (11.5-14.5)
[2021-12-24 06:50] LABS: CALCIUM 8.6 mg/dL (8.4-10.2); CREATININE, serum 0.59 mg/dL (0.57-1.11); POTASSIUM 4.1 mmol/L (3.5-4.5)
[2021-12-24 06:53] LABS: HEMATOCRIT 34.9 % (37.0-47.0)
--- NOTE | 2021-12-24 07:03 | NUR ---
Potassium yesterday was 4.6. Clarified with ALFREDO Lee if she wanted scheduled Potassium to be given. Stated to see what lab results were this morning, and if Potassium is 4.6 or higher, hold potassium. Result this morning 4.1. Medication to be given.
[2021-12-24 07:24] VITALS: BP 104/65; PULSE 59; TEMP 97.5
--- NOTE | 2021-12-24 10:37 | NUR ---
PATIENT EXREMELY VERBALLY ABUSIVE. HAS CALLED THE PCT A "STUPID FUCKING BITCH" MUTIPLE TIMES. SHE HAS SCREAMED AT THIS RN AND PCT FIONA FREQUENTLY. USUALLY HAPPENS WHEN SHE IS GETTING UP TO USE THE BATHROOM, WHICH REQUIRES 2 PERSON ASSIST. WHEN ATTEMPTING TO FIND OUT HOW SHE GETS TO THE BATHROOM AT HOME (SINCE SHE LIVES ALONE) SHE STATED "I DONT WANT TO TALK TO YOU IDIOTS." CHARGE NURSE AWARE AND WILL SPEAK WITH PATIENT.
[2021-12-24 11:44] VITALS: BP 110/56; PULSE 98; TEMP 97.5
--- NOTE | 2021-12-24 11:45 | NUR ---
PATIENT CALLED TO USE RESTROOM AGAIN. UPON ENTERING THE ROOM PATIENT WAS YELLING AND HAS CONTINUED TO BE VERBALLY ABUSIVE. SHE IS CURRENTLY MAD THAT SHE HAD TO WAIT FOR US TO COME TO HER ROOM (BOTH PCT AND I WERE BUSY IN A SEPEATE ROOM AND CAME PILO). WE ASKED IF SHE WOULD LIKE TO TRY A PURE WICK SO SHE COULD URINATE WITHOUT NEEDING TO WAIT ON US. SHE GOT EXTREMLY UPSET. EVEN AFTER EDUCATING HER MANY TIMES ON ITS USE SHE WAS SCREAMING SHE DOESNT WANT A "DILDO."
--- NOTE | 2021-12-24 13:30 | NUR ---
THIS RN AND PCT WENT TO TAKE PATIENT TO THE BATHROOM. AFTER GETTING HER SAFELY TOTHE BEDSIDE COMMODE, SHE STATED SHE CAMT BELIEVE SHE HAS TO GET IN THAT "NASTY ASS BED." WE ASKED WHATS WRONG WITH IT AND REMINDED HER SHE HAD A BED CHANGE THIS MORNING. SHE POINTED TO THE PAD ON THE BED, THAT WAS SLIGHTLY WRINKLED AND BEGAN TO YELL. WE CHANGED HER CLEAN PAD AGAIN AND GOT HER ADJUSTED COMFORTABLY BACK INTO BED.
--- NOTE | 2021-12-24 13:41 | NUR ---
Dirt Contractor rounds: Dirt Contractor visit attempted. CAMPUS SUPERVISOR were toileting Patient on bedside commode. Dirt Contractor visit not conducted.
--- NOTE | 2021-12-24 14:00 | NUR ---
PATIENT STILL BEING VERBALLY ABUSIVE, EVEN AFTER SPEAKING WITH CHARGE NURSE. STATING SHE WANTS BETTER FOOD AND SERIVE AND WANTS TO SPEAK WITH THE PHYSICIAN REGARDING THESE ISSUES. I INFORMED HER THAT THE PHYSICIAN IS CURRENTLY ROUNDING ON ALL OF HIS PATIENTS, HE DID HER EARLIER. SHE IS STILL AGITATED SAYING SHEW WANTS TO GO TO [facility]. I INFORMED HER SHE IS GETTING THE CARE SHE NEEEDS HERE. WE MAKE SURE SHE HAS FOOD ORDERED TO HER ROOM, COME EACH TIME SHE CALLS FOR THE [facility] COMMODE, WE ARE GIVING HER HOME PAIN MEDICATION, WHICH SHE AGREES IS CONTROLLING HER PAIN, AND SHE IS RECIEVING THE IV ANTIBIOTCS SHE NEEDS FOR HER LLE CELLULITIS. SHE BEGAN TO YELL AGAIN THAT SHE WANTS TO LEAVE, THIS RN LEFT TO ALLOW HER TO CALM DOWN. YOUSIF CONT TO MONITOR.
--- NOTE | 2021-12-24 15:19 | NUR ---
dredge worker met with patient to complete intake and discuss discharge plan. Patient reports that she lives at home in an apartment alone here in [place]. She reports that she is able to cook her own meals, do the dishes and complete most of her ADL's. She states at home she is able to utilize the bathroom on her own with the assistance of a toilet riser. She has a home health aid that comes in twice a week from [address] [place] [address] to help her clean, do laundry and provides her with a shower. She has a shower chair. Her friend Latricia comes in to check on her throughout the week. PCP is and she utilizes [facility] for prescriptions. Patient does have a DPOA-HC established listing her friend Latricia. Per nursing staff, patient has been verbally aggressive towards them today. SW spoke at length with the patient about this. Patient expresses frustration over the infection in her legs and that it keeps coming back. She makes the statement " the doctors are not doing anything for it". She verbalizes great fear over losing her legs. SW validated the patient's feelings and provided emotional support. Patient also verbalizes frustration that she cannot have the commode at her bedside. I explained to the patient that her safety is what is important at this time, but i would speak her her RN about this. SW informed the patient that she has physical therapy ordered that they might recommend long term for her. Patient verbalizes that she is open to going to an assisted living, but recognizes that she needs more care then that. She was previously at [facility] in , and did not like it there. Educated the patient that we can look at [place] facilities if PT/OT do recommend SNF. Discharge plan: Pending PT/OT evals. Patient could benefit from SNF or LTC.
[2021-12-24 15:59] VITALS: BP 99/46; PULSE 53; TEMP 97.8
[2021-12-24 19:24] VITALS: BP 94/62; PULSE 70; TEMP 98.5
--- NOTE | 2021-12-24 19:45 | NUR ---
Top Lift And Automatic Window Repairer video game creator: RN called Top Lift And Automatic Window Repairer at 4:48 p.m. to comfort Patient with high anxiety. Top Lift And Automatic Window Repairer did not arrive at hospital until 5:57 p.m. due to traffic from [email or web address]. Initial assessment: Patient was angry and cursing. Explored possible causes of Patient's anxiety. Liberty/Denomination: None. Patient stated she is not buddhism at all. Background: Patient's stated hospital food was not fit for a dog to eat. Patient's friend Nuria had gone to get Patient [employer] takeout. Nuria had gotten trapped in the post-game [employer] traffic also. It took longer for her to return than Patient thought that it should. Dayshift RN had attempted to insert catheter. Patient was angry about the catheter. Patient told Top Lift And Automatic Window Repairer she had "ripped the damn thing out myself." Patient stated that she had to "pee all the time." The catheter was not a solution that Patient was willing to discuss. Patient wants to go to a different hospital because she has been here before and was not happy with the treatment she received at that visit. Assessment: Patient is scared and lonely. Patient was also very hungry. Interventions: Top Lift And Automatic Window Repairer assisted Patient with eating the food brought by the dining staff. Patient ate 7-9 bites before Nuria arrived with her takeout. Patient refused to eat more hospital food. Top Lift And Automatic Window Repairer removed hospital tray from the room while Nuria helped Patient set up the bedside table for her takeout meal. Patient ate approximate 1/8 of food before declaring that she was finished and the remaining food could go into the trash. Nuria boxed it to take home for herself. Top Lift And Automatic Window Repairer ordered ice cream for Patient from dining staff. Patient, Nuria, and Top Lift And Automatic Window Repairer had relaxing conversation. Top Lift And Automatic Window Repairer provided supportive listening to Nuria as she discussed the of her in this hospital. Being in this hospital was triggering for her. The conversation helped Patient to sit quietly and she began to relax. Top Lift And Automatic Window Repairer asked RN and TRUCK CRANE OPERATOR HELPER to move Patient from recliner to bed, toileting her first; and then put a heated blanket on Patient, which they did. All of these interventions had a calming effect on Patient. Patient was then comfortable enough that Top Lift And Automatic Window Repairer and Nuria could leave the room. Patient said she was not going to sleep, however, she was experiencing a lowered head and drooping eyelids before Top Lift And Automatic Window Repairer left the room. Patient thanked Top Lift And Automatic Window Repairer and asked that receive another visit tomorrow. Top Lift And Automatic Window Repairer assured Patient that tomorrow's Top Lift And Automatic Window Repairer would be asked to visit her during Top Lift And Automatic Window Repairer rounds. Recommendation: This Top Lift And Automatic Window Repairer will leave a message for tomorrow's Top Lift And Automatic Window Repairer to follow up with more supportive listening for this Patient.
--- NOTE | 2021-12-24 21:00 | NUR ---
PATIENT IS RESTING ON THE CHAIR.PATIENT IS A TWO ASSIST.PATIENT IS CALM.PATIENT TAKES PILLS WHOLE WITH NO TROUBLE.PATIENT DENIES PAIN.PATIENT WAS PUT TO BED.PATIENT FELL ASLEEP.SAFETY MEASURES IN PLACE.NO OTHER NEEDS AT THIS TIME.
[2021-12-25 01:10] VITALS: BP 95/52; PULSE 83; TEMP 98.2
[2021-12-25 04:12] VITALS: BP 106/66; PULSE 91; TEMP 97.9
--- NOTE | 2021-12-25 05:12 | NUR ---
PATIENT HAS SLEPT FOR MOST PART OF THE NIGHT.PATIENT HAS BEEN COOPERATIVE AND THANKFUL.PATIENT REPORTS PAIN.MEDICATION ADMINISTERED PER JUN.PATIENT USES A BEDSIDE COMMODE.PATIENT HAS BEEN CALLING APPROPRIATELY.SAFETY MEASURES IN PLACE.NO OTHER NEEDS AT TIS TIME.
[2021-12-25 06:29] LABS: BASO % 0.5 % (0.0-2.0); EOS # 0.3 K/mm3 (0.0-0.7); EOS % 4.2 % (0.0-4.0); GRAN # 3.5 K/mm3 (1.4-6.5); GRAN % 58.3 % (42.2-75.2); HEMOGLOBIN 11.4 g/dl (12.5-16.0); LYMPH # 1.4 K/mm3 (1.2-3.4); LYMPH % 22.9 % (20.0-51.0); MEAN CELL VOLUME 92 fl (80.0-100.0); MEAN CORPUSCULAR HEMOGLOBIN 29 pg (27-31); MEAN CORPUSCULAR HGB CONC 32 g/dl (33.0-37.0); MEAN PLATELET VOLUME 9.5 fl (7.4-10.4); MONO # 0.8 K/mm3 (0.1-0.6); MONO % 13.9 % (1.7-9.3); PLATELET COUNT 340 K/mm3 (130-400); RED BLOOD COUNT 3.93 M/mm3 (4.10-5.30); REDCELL DISTRIBUTION WIDTH-CV 16.3 % (11.5-14.5)
[2021-12-25 06:31] LABS: HEMATOCRIT 36.2 % (37.0-47.0)
[2021-12-25 06:42] LABS: CALCIUM 8.5 mg/dL (8.4-10.2); CREATININE, serum 0.66 mg/dL (0.57-1.11); POTASSIUM 4.2 mmol/L (3.5-4.5)
[2021-12-25 07:36] VITALS: BP 86/46; PULSE 74; TEMP 97.8
[2021-12-25 12:00] VITALS: BP 118/52; PULSE 78; TEMP 98.8
[2021-12-25 15:38] VITALS: BP 91/64; PULSE 91; TEMP 97.5
--- NOTE | 2021-12-25 17:55 | NUR ---
PT HAD A CALM DAY, VSSTABE, ALERT AND ORIENT X4, DUE MEDICATION GIVEN PRESCRIBED ALL WELL TOLARATED, NO ADVERSE REACTION NOTED, COMPLAINTS OF PAIN RAISED DURING THE DAY WELL CONTROLED WITH PAIN MEDS.
[2021-12-25 19:51] VITALS: BP 98/65; PULSE 86; TEMP 98.3
[2021-12-26 03:31] VITALS: BP 96/67; PULSE 90; TEMP 97.6
--- NOTE | 2021-12-26 06:06 | NUR ---
SHIFT SUMMARY PATIENT RESTED QUIETLY THIS SHIFT. PATIENT RECEIVED PRN NORCO X1. PATIENT COMPLAINED THAT SHE HAS BEEN TAKING POTASSIUM FOR 3 YEARS FOR HER PAIN AND HER SYMPTOMS HAVE NOT IMPROVED. THIS NURSE EDUCATED PATIENT ON USE OF POTASSIUM AND PATIENT CONTINUED TO REPEAT SHE HAD BEEN ON POTASSIUM FOR 3 YEARS AND HER SYMPTOMS ARE THE SAME. PATIENT EAGER TO TALK TO PROVIDER THIS AM REGARDING PAIN. PATIENT UP TO BATHROOM WITH ONE ASSIST AND EASILY FRUSTRATED WITH STAFF DURING CARES. PATIENT ENCOURAGED NOT TO YELL AT STAFF MEMBERS WHEN EXPRESSING NEEDS.
--- NOTE | 2021-12-26 06:40 | NUR ---
appears to be sleeping, bedside shift report received from NAILA Kenyon
--- NOTE | 2021-12-26 07:45 | NUR ---
awake and looking at TV, full assessment completed, see interventions for further info,
[2021-12-26 07:52] LABS: BASO % 0.5 % (0.0-2.0); EOS # 0.3 K/mm3 (0.0-0.7); EOS % 3.8 % (0.0-4.0); GRAN # 3.5 K/mm3 (1.4-6.5); GRAN % 53.5 % (42.2-75.2); HEMOGLOBIN 11.6 g/dl (12.5-16.0); LYMPH # 1.9 K/mm3 (1.2-3.4); LYMPH % 29.3 % (20.0-51.0); MEAN CELL VOLUME 92 fl (80.0-100.0); MEAN CORPUSCULAR HEMOGLOBIN 30 pg (27-31); MEAN CORPUSCULAR HGB CONC 32 g/dl (33.0-37.0); MEAN PLATELET VOLUME 9.3 fl (7.4-10.4); MONO # 0.8 K/mm3 (0.1-0.6); MONO % 12.6 % (1.7-9.3); PLATELET COUNT 301 K/mm3 (130-400); RED BLOOD COUNT 3.91 M/mm3 (4.10-5.30); REDCELL DISTRIBUTION WIDTH-CV 16.3 % (11.5-14.5)
[2021-12-26 07:55] VITALS: BP 109/75; PULSE 89; TEMP 98.2
[2021-12-26 07:56] LABS: HEMATOCRIT 36.1 % (37.0-47.0)
[2021-12-26 08:02] LABS: CALCIUM 8.6 mg/dL (8.4-10.2); CREATININE, serum 0.6 mg/dL (0.57-1.11); POTASSIUM 4.5 mmol/L (3.5-4.5)
--- NOTE | 2021-12-26 08:20 | NUR ---
am meds given and takes withot difficulty
--- NOTE | 2021-12-26 09:30 | NUR ---
sitting up on side of bed, talking on phone and is angry and stating she is not going to go to a residential to this person
--- NOTE | 2021-12-26 11:32 | NUR ---
up in chair at this time ready for lunch
[2021-12-26 11:36] VITALS: BP 130/70; PULSE 81; TEMP 97.7
--- NOTE | 2021-12-26 12:30 | NUR ---
sitting up in recliner eating lunch
--- NOTE | 2021-12-26 14:33 | NUR ---
remains up in chair and is working on puzzles
--- NOTE | 2021-12-26 14:59 | NUR ---
[place]: Josse Situation: chainstitch sewing machine operator went by room on rounds Background: Pt was content and resting Assessment: Pt has no needs right now. Pt appreciated the visit Recommendation: chainstitch sewing machine operator will follow up as needed
[2021-12-26 15:23] VITALS: BP 131/85; PULSE 84; TEMP 97.5
--- NOTE | 2021-12-26 15:37 | NUR ---
resting in chair, requesting a snack
--- NOTE | 2021-12-26 16:10 | NUR ---
Squeegeer And Former followed up with patient on discharge plan. Patient verbalized frustration with cares from staff and SW had a difficult time directing the conversation towards discharge planning. SW reviewed the three local SNFs: [facility], [facility], and [facility]. SW explained what a skilled stay would look like and that the focus would be rehab and getting stronger. Patient states "getting stonger, what are you talking about?" Patient is adamant that she just needs her leg fixed and that the doctors won't listen to her. SW discussed referrals and patient is agreeable at some points of the conversation, but then would insist on returning home. SW contacted patient's DPOA-HC, Latricia and left a message. [facility], [facility] and [facility]. [facility] declined referral. Kirstie at [facility] advised they have had patient before and she is verbally abusive to staff. ERNA contacted Donnie at [facility] who continues to review referral. Discharge Plan: SNF referral pending, however placement will be difficult as patient is noted to be verbally abusive to staff.
--- NOTE | 2021-12-26 16:20 | NUR ---
assisted back to bed, INT to left forearm leaking, discontinued and new INT started, denies pain
--- NOTE | 2021-12-26 18:39 | NUR ---
bedside shift report given to NAILA Peres
[2021-12-26 19:35] VITALS: BP 109/43; PULSE 93; TEMP 97.9
[2021-12-26 23:54] VITALS: BP 126/66; PULSE 91; TEMP 97.7
[2021-12-27 04:01] VITALS: BP 101/58; PULSE 89; TEMP 97.7
--- NOTE | 2021-12-27 06:03 | NUR ---
PATIENT RESTED QUIETLY THIS SHIFT. PATIENT RECEIVED PRN LORTAB FOR COMPLAINTS OF PAIN. PATIENT EASILY FRUSTRATED AND DEMANDING. PATIENT UPSET SHE IS UP URINATING FREQUENTLY AND COMPLAINING ANTIBIOTICS AREN'T WORKING. EDUCATION PROVIDED AND REINFORCEMENT NEEDED.
[2021-12-27 07:02] VITALS: BP 101/47; PULSE 62; TEMP 98.3
[2021-12-27 07:03] LABS: BASO % 0.6 % (0.0-2.0); EOS # 0.2 K/mm3 (0.0-0.7); EOS % 3.5 % (0.0-4.0); GRAN # 3.8 K/mm3 (1.4-6.5); GRAN % 58.3 % (42.2-75.2); HEMOGLOBIN 11.6 g/dl (12.5-16.0); LYMPH # 1.7 K/mm3 (1.2-3.4); LYMPH % 26.5 % (20.0-51.0); MEAN CELL VOLUME 90 fl (80.0-100.0); MEAN CORPUSCULAR HEMOGLOBIN 29 pg (27-31); MEAN CORPUSCULAR HGB CONC 32 g/dl (33.0-37.0); MEAN PLATELET VOLUME 10.2 fl (7.4-10.4); MONO # 0.7 K/mm3 (0.1-0.6); MONO % 10.9 % (1.7-9.3); PLATELET COUNT 345 K/mm3 (130-400); RED BLOOD COUNT 4.01 M/mm3 (4.10-5.30); REDCELL DISTRIBUTION WIDTH-CV 16.1 % (11.5-14.5)
[2021-12-27 07:06] LABS: HEMATOCRIT 35.9 % (37.0-47.0)
[2021-12-27 07:19] LABS: CALCIUM 8.9 mg/dL (8.4-10.2); CREATININE, serum 0.59 mg/dL (0.57-1.11); POTASSIUM 4.3 mmol/L (3.5-4.5)
--- NOTE | 2021-12-27 07:51 | NUR ---
PT IN BED UPON ASSESSMENT. ROOM AIR AND ALERT AND ORIENTEDX4. NO COMPLAINTS OF PAIN AT THIS TIME.
[2021-12-27 11:02] VITALS: BP 112/66; PULSE 83; TEMP 98.1
[2021-12-27 15:22] VITALS: BP 107/57; PULSE 68; TEMP 98
--- NOTE | 2021-12-27 16:18 | NUR ---
Web Development Instructor faxed clinical updates to Donnie at [facility] who is having his team review referral. ERNA met with patient to provide update. Patient stated she is agreeable to go to a shelter for rehab but does not want to live their residential. ERNA advised [facility] and [facility] have declined and SW referenced patient's behavior towards nursing staff, which she denied. Patient requested SW call Latricia at [facility]. ERNA left Latricia a message.
--- NOTE | 2021-12-27 19:00 | NUR ---
PT SLEEPING AT THIS TIME WILL RETURN FOR ASSESSMENT AND MEDICATIONS.
[2021-12-27 20:18] VITALS: BP 113/64; PULSE 85; TEMP 98.1
[2021-12-27 23:54] VITALS: BP 122/49; PULSE 96; TEMP 97.1
[2021-12-28 04:15] VITALS: BP 101/69; PULSE 88; TEMP 98.5
[2021-12-28 06:55] LABS: CALCIUM 8.7 mg/dL (8.4-10.2); CREATININE, serum 0.61 mg/dL (0.57-1.11); POTASSIUM 4.8 mmol/L (3.5-4.5)
[2021-12-28 07:02] LABS: BASO % 0.3 % (0.0-2.0); EOS # 0.3 K/mm3 (0.0-0.7); EOS % 3.9 % (0.0-4.0); GRAN # 3.6 K/mm3 (1.4-6.5); GRAN % 53.5 % (42.2-75.2); HEMATOCRIT 37.9 % (37.0-47.0); HEMOGLOBIN 12.1 g/dl (12.5-16.0); LYMPH # 2.1 K/mm3 (1.2-3.4); LYMPH % 30.8 % (20.0-51.0); MEAN CELL VOLUME 91 fl (80.0-100.0); MEAN CORPUSCULAR HEMOGLOBIN 29 pg (27-31); MEAN CORPUSCULAR HGB CONC 32 g/dl (33.0-37.0); MEAN PLATELET VOLUME 9.5 fl (7.4-10.4); MONO # 0.8 K/mm3 (0.1-0.6); MONO % 11.2 % (1.7-9.3); PLATELET COUNT 342 K/mm3 (130-400); RED BLOOD COUNT 4.16 M/mm3 (4.10-5.30); REDCELL DISTRIBUTION WIDTH-CV 15.9 % (11.5-14.5)
[2021-12-28 07:29] VITALS: BP 112/52; PULSE 82; TEMP 97.9
--- NOTE | 2021-12-28 07:58 | NUR ---
Shift assessment preformed. Scheduled medications given. Patient A&O. VSS. Patient rates pain LLE pain an 8/10 and describes it as aching. Scheduled pain medication given. Patient currently resting in bed, denies any further pain, discomfort, SOA, or further needs at this time. Call light in reach. Fall precautions in place.
[2021-12-28 11:03] VITALS: BP 104/62; PULSE 88; TEMP 97.6
--- NOTE | 2021-12-28 15:02 | NUR ---
Flap Presser received a call back from Latricia Adamson, patient's DPOA-HC. Latricia was not aware she was DPOA-HC and stated she has had no contact with patient for a couple of years. Latricia advised she was a worker at [place] for patient. ERNA spoke with Donnie at [facility] who advised they would have to decline due to patient's verbally abusive behavior. ERNA reviewed PT/OT notes and patient has not walked recently. ERNA met with patient and advised her other referrals out of town would be sent. Patient still is having difficulty connecting her behavior to why the [place] SNFs have all declined. Patient is still agreeable to rehab and states she will go somewhere for "10 days" however also expressed frustration with this SW and stated that SW has had "all fucking week" to find her somewhere to go. ERNA gave referral to IPR Director Jacy who declined as patient cannot tolerate three hours of therapy daily. ERNA gave referral to [facility] as well as other area SNFs: [facility], [facility], [facility], [facility], and [facility].
[2021-12-28 17:00] VITALS: BP 115/77; PULSE 85; TEMP 98.3
--- NOTE | 2021-12-28 18:35 | NUR ---
Patient has had a good day. VSS. Patient A&O. Scheduled medications given. Shift assessment preformed. Patient verbalized to staff that she felt confined like she was in halfway. KORI Vernon escorted patient to courtya for fresh air. Once patient returned to unit, she has remained at nurses station and has been occupying herself with puzzle games. Patient states pain and mood have greatly improved. Patient denies any further pain, discomofort, SOA, or further needs a this time. Fall precautions in place.
[2021-12-28 19:40] VITALS: BP 112/48; PULSE 64; TEMP 97.8
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
[2021-12-29 04:00] VITALS: BP 102/53; PULSE 93; TEMP 98.9
[2021-12-29 07:14] LABS: CALCIUM 8.7 mg/dL (8.4-10.2); CREATININE, serum 0.62 mg/dL (0.57-1.11); POTASSIUM 4.7 mmol/L (3.5-4.5)
--- NOTE | 2021-12-29 08:30 | NUR ---
PATIENT ASLEEP AT THIS TIME, WILL WAIT TO DO VS UNTIL PATIENT IS AWAKE. DOES NOT APPEAR TO BE IN ACUTE DISTRESS, CALL LIGHT WITHIN REACH, BED IN LOWEST, LOCKED POSITION.
--- NOTE | 2021-12-29 09:09 | NUR ---
PATIENT CURRENTLY RESTING IN BED. VSS. WILL PERFORM SHIFT ASSESSMENT ONCE PATIENT IS AWAKE. CALL LIGHT WITHIN REACH, BED IN LOWEST, LOCKED POSITION.
--- NOTE | 2021-12-29 10:36 | NUR ---
PATIENT AWAKE IN BED AT THIS TIME. ALERT AND ORIETNED X4. DENIES PAIN AT THIS TIME. LUNGS CTA. 2+ PITTING EDEMA TO BLE. LLE WITH CELLULITIS, REDNESS, AND ULCER COVERED WITH OPTIFOAM. MEDICATIONS ADMINISTERED PER ORDER. PATIENT VERBAZLIES SHE DOES NOT WISH TO BE HERE AND WOULD LIKE TO LEAVE BUT SHE IS UNABLE TO AMBULATE INDEPENDENTLY. UPDATED SW REGARDING PATIENT'S DESIRE TO DISCHARGE. AWAITING FACILITY PLACEMENT. PATIENT WORKING WITH PT AT THIS TIME, CALL LIGHT WITHIN REACH.
--- NOTE | 2021-12-29 10:50 | NUR ---
PAIN ASSESSMENT COMPLETED, PATIENT DENIES ANY PAIN. PATIENT REQUESTED TO COME SIT OUT BY NURSES STATION IN WHEELCHAIR. PATIENT UP TO WHEELCHAIR WITH THE ASSIST OF PT. THIS NURSE ASKED PATIENT IF SHE WOULD LIKE A CROSSWORD PUZZLE OR ANYTHING TO DO, PATIENT STATES "GET THE FUCK OUT OF HERE." PATIENT UP IN WHEELCHAIR AT THIS TIME NEAR NURSES STATION, DENIES FURTHER NEEDS.
[2021-12-29 11:33] VITALS: BP 98/54; PULSE 81; TEMP 98.1
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
[2021-12-29 15:49] VITALS: BP 107/66; PULSE 76; TEMP 98
--- NOTE | 2021-12-29 16:37 | NUR ---
PATIENT AWAKE AND IN BED AT THIS TIME. PATIENT STATED TO THIS NURSE THAT SHE CANNOT HELP THAT SHE IS VERBALLY ABUSIVE TO STAFF AND STATES THAT WHEN SHE GETS ANGRY SHE IS NOT ABLE TO CONTROL HER BEHAVIOR. THIS NURSE SUGGESTED THAT PATIENT TRY DEEP BREATHING WHEN SHE IS UPSET AND PATIENT IS AGREEABLE. THIS NURSE ALSO SUGGESTED THAT IF PATIENT IS BECOMING FRUSTRATING WITH STAFF, SHE CAN REQUEST STAFF LEAVE MOMENTARILY TO GIVE HER TIME TO RELAX, PATIENT IS AGREEABLE TO THIS AND STATES SHE BELIEVES IT IS A GOOD IDEA. PATIENT STATES DESIRE TO FIND PLACEMENT. EVENING ABX GIVEN PER ORDER, PATIENT TOLERATED WELL. NO OTHER NEEDS NOTED AT THIS TIME. CALL LIGHT WITHIN REACH, BED IN LOWEST, LOCKED POSITION.
--- NOTE | 2021-12-29 18:25 | NUR ---
PATIENT UP IN BED AT THIS TIME PLAYING GAMES ON TABLET. PATIENT HAS BEEN REQUESTING TO SIT UP IN WHEELCHAIR IN HALLWAY NEAR NURSES STATION. CHECKED WITH IRON MELTER, PATIENT IS OKAY TO SIT UP IN WHEELCHAIR NEAR NURSES STATION UNDER SUPERVISION. DENIES ANY NEEDS AT THIS TIME. CALL LIGHT WITHIN REACH, BED IN LOWEST, LOCKED POSITION.
[2021-12-29 19:13] VITALS: BP 123/76; PULSE 76; TEMP 98.5
[2021-12-29 23:50] VITALS: BP 106/59; PULSE 92; TEMP 98.3
[2021-12-30 04:00] VITALS: BP 101/72; PULSE 72; TEMP 98.5
--- NOTE | 2021-12-30 05:32 | NUR ---
PATIENT RESTED QUIETLY THIS SHIFT. PATIENT POLITE AND COOPERATIVE WITH STAFF. THIS NURSE ABLE TO GIVE LOVENOX SHOT. PATIENT BECAME UPSET AT APPROX 0500 D/T THINKING SHE WAS RECEIVING ANOTHER SHOT. PATIENT ABLE TO BE CALMED DOWN AND REASSURED THAT SHE WAS GETTING IV ANTIBIOTIC NOT A SHOT. PATIENT BECAME COOPERATIVE AND AGREED. PATIENT RECEIVED PRN LORTAB FOR COMPLAINTS OF PAIN.
[2021-12-30 08:01] VITALS: BP 95/79; PULSE 76; TEMP 97.7
--- NOTE | 2021-12-30 08:29 | NUR ---
Scheduled medications given. Shift assessment preformed. Patient A&O. VSS. Patient pleasant and cooperative with cares. When asked about pain patient stated, "I am ok right now." Patient denies any further pain, discomfort, SOA, or further needs at this time. Call light in reach. Fall precautions in place.
[2021-12-30] MEDS ORDERED: CIPRO 500MG TA500 MG PO (09:14)
--- NOTE | 2021-12-30 13:23 | NUR ---
Patient deemed fit for discharge. IV DC'd, catheter intact, no signs of phlebitis. Discharge education/instructions discussed. All questions answered. LLE dressing changed using vaseline gauze, abd pad, kerlix, and leigha wrap. VSS. Patient A&O. Patient denies any further pain, discomfort, SOA, or further needs at this time. Patient escorted from building via wheelchair, escorted by [facility] Staff. Family friend transporting home.
--- NOTE | 2021-12-30 15:26 | NUR ---
Database Manager met with patient who will discharge home today. Patient's friend, Nuria is at bedside and will give patient a ride home today. Nuria advised she takes patient shopping and helps her as needed. ERNA presented IM form to patient who read the form and verbalized understanding. Patient provided signature. ERNA placed form in chart and provided copy to patient. ERNA contacted [facility] and faxed discharge orders. ERNA also spoke with Latricia at [facility] and updated her on discharge plan. ERNA then contacted Amanda, Medicaid Women'S Health Care Nurse Practitioner and updated her on discharge plan. Discharge Plan: Home with [facility], APS report filed.
== END 2021-12-30 12:30 | disposition home health service (06) | DRG 603 ==
LOC: COL.ER 12:53 → MEDICAL 15:07
PROVIDERS: Emergency Medicine; Physician Assistant; ADMIT Student in an Organized Health Care Education/Training Program
DX: L03.116 Cellulitis of left lower limb (principal); Z96.651 Presence of right artificial knee joint; D72.829 Elevated white blood cell count, unspecified; G89.29 Other chronic pain; M06.9 Rheumatoid arthritis, unspecified; D64.9 Anemia, unspecified; M25.59 Pain in other specified joint; B95.61 Methicillin susceptible Staphylococcus aureus infection as the cause of diseases classified elsewhere; I95.2 Hypotension due to drugs; K59.03 Drug induced constipation; B96.5 Pseudomonas (aeruginosa) (mallei) (pseudomallei) as the cause of diseases classified elsewhere; E87.5 Hyperkalemia; S81.802A Unspecified open wound, left lower leg, initial encounter; T40.605A Adverse effect of unspecified narcotics, initial encounter; Y92.89 Other specified places as the place of occurrence of the external cause; Z88.0 Allergy status to penicillin; Z91.018 Allergy to other foods; Z90.49 Acquired absence of other specified parts of digestive tract; Z87.19 Personal history of other diseases of the digestive system
CPT/HCPCS: J0692; J0696; J1650; J3370; J7040; J7050

== ENCOUNTER 2022-05-12 23:27 | Inpatient (IN) | payer MEDICARE, MEDICAID ==
[~2022-05-12] VITALS: Ht 165.1 cm; Wt 55.4 kg
[~2022-05-12 23:27] MED LIST changes: +CIPRO 500MG TA500 MG PO
[2022-05-13] VITALS (795 sets, daily range): BP systolic 68–118; BP diastolic 34–95; PULSE 66–100; TEMP 97–98.5; O2SAT 58–100
[2022-05-13 01:25] LABS: BASO % 0.3 % (0.0-2.0); EOS # 0.1 K/mm3 (0.0-0.7); EOS % 0.7 % (0.0-4.0); GRAN # 4.7 K/mm3 (1.4-6.5); GRAN % 62.4 % (42.2-75.2); HEMOGLOBIN 11.7 g/dl (12.5-16.0); LYMPH # 1.9 K/mm3 (1.2-3.4); LYMPH % 25.9 % (20.0-51.0); MEAN CELL VOLUME 77 fl (80.0-100.0); MEAN CORPUSCULAR HEMOGLOBIN 25 pg (27-31); MEAN CORPUSCULAR HGB CONC 32 g/dl (33.0-37.0); MEAN PLATELET VOLUME 11.4 fl (7.4-10.4); MONO # 0.8 K/mm3 (0.1-0.6); MONO % 10.4 % (1.7-9.3); PLATELET COUNT 286 K/mm3 (130-400); RED BLOOD COUNT 4.75 M/mm3 (4.10-5.30); REDCELL DISTRIBUTION WIDTH-CV 22.3 % (11.5-14.5)
[2022-05-13 01:26] LABS: HEMATOCRIT 36.7 % (37.0-47.0)
[2022-05-13 01:31] LABS: ALBUMIN 2.8 gm/dL (3.4-4.8); BILIRUBIN,TOTAL 0.8 mg/dL (0.2-1.2); CALCIUM 9.3 mg/dL (8.4-10.2); CREATININE, serum 0.65 mg/dL (0.57-1.11); TOTAL PROTEIN 7.7 gm/dL (6.2-8.1)
[2022-05-13 01:37] LABS: TROPONIN-I 0.033 ng/mL (0.00-0.033)
[2022-05-13 03:09] LABS: COLLECTION METHOD CLEAN CATCH
[2022-05-13 03:15] LABS: PH 5.5 (5.0-8.5); URINE APPEARANCE Clear (CLEAR/HAZY); URINE BLOOD Negative (NEGATIVE); URINE COLOR Yellow (YELLOW); URINE GLUCOSE Negative (NEGATIVE); URINE KETONE Negative (NEGATIVE); URINE NITRATE Negative (NEGATIVE); URINE PROTEIN(semi-quant) Negative (NEGATIVE); URINE UROBILINOGEN 0.2 E.U/dL (0.2-1.0)
[2022-05-13 03:17] LABS: MUCOUS Present (NOT PRESENT); SQUAMOUS EPITHELIAL None Seen /hpf (0-10); URINE BACTERIA None Seen /hpf (NONE SEEN); URINE RBC 0-2 /hpf (0-2)
[2022-05-13 03:48] LABS: TRICYCLIC ANTIDEPRESS URINE NEGATIVE
[2022-05-13 05:21] LABS: PARTIAL THROMBOPLASTIN TIME 28.3 SECONDS (26.0-37.0)
--- NOTE | 2022-05-13 07:39 | NUR ---
BEDSIDE REPORT RECEIVED FROM NAILA PENDLETON. PT LAYING IN BED, VERY AGITATED AND COMBATIVE W/ CARES. DRIPS INFUSING ORDERED. PT HAS TWO IV SITES, ONE TO R WRIST, ONE TO R FOREARM, BOTH WNL AND WRAPPED W/ SHUKRI WRAP. BED ALARM ON FOR PT SAFETY.
--- NOTE | 2022-05-13 08:28 | NUR ---
AT TIME OF ASSESSMENT PT IS VERY DROWSY BUT AROUSABLE, ABLE TO STATE NAME. DOES NOT ANSWER ANY OTHER ORIENTATION QUESTIONS. TELE MONITORING SHOWS SINUS DYS W/ PAC'S.
--- NOTE | 2022-05-13 12:08 | NUR ---
While patient was sleeping distillery supervisor prayed over patient.
--- NOTE | 2022-05-13 12:37 | NUR ---
PT UP TO COMMODE AT 1100, TRANSFERS TO COMMODE W/ 2:1 ASSIST. AFTER RETURNING TO BED PT'S O2 SAT DOWN TO 80%. PT WILL NOT LEAVE OXYMASK OR NC ON, REPEATEDLY SCREAMS AT STAFF AND THROWS EQUIPMENT. PT SAYS "SHUT THE FUCK UP" AND ATTEMPTS TO BITE STAFF. HALDOL GIVEN, NO IMPROVEMENT NOTED.
--- NOTE | 2022-05-13 12:58 | NUR ---
Pillo PughClip Wrapper consults this Cutting Machine Offbearer: patient agitated in ICU with decrease in oxygen sats, refusing intervention at this time. Patient chart notes DNR order placed at approximately 04:00 this morning. Prior medical record indicates last visit, patient's DPOA-HC agent on file, Latricia, declined wish to act as patient DPOA-HC as has not seen/connected with patient in years and served as a care provider for an agency prior to this. Latricia has requested to no longer be contacted on patient behalf, as will not act as DPOA-HC. Chart review indicates no other individual listed as NOK and/or DPOA-HC. Patient is noted to have contacted EMS multiple times in the last two days, but patient is disoriented, confused, agitated and only at times reliable or willing historian and/or oriented. Historically, APS report has been completed during last admission. Per EMS, patient had feces in her home upon arrival and is in deplorable/unlivable condition. APS report pending patient condition/status. All current/historic Advanced Directives on file reviewed, and patient has never completed attached Living Will to specify healthcare directives. All indicate the same republican Latricia as identified agent/DPOA-HC who repeatedly declines to complete this duty. Pillo YOObarrel and receiver aligner to contact Pulmonology to request Medical evaluation. Cutting Machine Offbearer in support of plan and remains available as needed to patient and staff.
--- NOTE | 2022-05-13 13:25 | NUR ---
Coating And Embossing Unit Operator followed up with Pillo YOOshop technician, Dr. Jewell, and Magy RN at patient bedside. Patient given medication and is sleeping, unable to be roused at prompting. Patient case reviewed. Dr. Jewell states agreement with DNR medically, and does not wish to revoke at this time. Coating And Embossing Unit Operator to refer patient to [facility] ethics [facility] for case review and care planning/problem solving. Coating And Embossing Unit Operator will complete additional APS reporting this date. Coating And Embossing Unit Operator updated Toshia Porter LMSW, Case Managment Director.
--- NOTE | 2022-05-13 15:32 | NUR ---
Pillo YOObrownell operator requested this Sports Medicine Masseur make another attempt to contact current DPOA-HC Latricia. Sports Medicine Masseur contacted Latricia and left VM requesting call back.
--- NOTE | 2022-05-13 15:58 | NUR ---
Mobility Developer completed APS report #[id number] this date.
--- NOTE | 2022-05-13 18:33 | NUR ---
1200 PT CONTINUES TO SCREAM "I CAN'T BREATHE", WILL NOT WEAR OXYGEN, SWINGS ARMS AT STAFF. CALL PLACED TO DR. SEAMAN. ONE TIME DOSE OF ATIVAN ORDERED. 1330 ATIVAN EFFECTIVE, PT ALLOWS STAFF TO PUT OXYMASK ON HER. OXYGEN TITRATED TO 3L, O2 SATS 94-98%. 1400 HERRON CATHETER PLACED ORDERED. PRECEDEX DRIP ORDERED PER DR. WILSON. 1830 PT RESTED QUIETLY ALL AFTERNOON, PT IS DROWSY BUT AROUSABLE. PRECEDEX DECREASED, SEE TITRATION FLOW SHEET. LEVOPHED INITIATED FOR HYPOTENSION.
[2022-05-14] VITALS (1051 sets, daily range): BP systolic 91–114; BP diastolic 53–73; PULSE 64–101; TEMP 97.8–98.6; O2SAT 81–99
[2022-05-14 06:26] LABS: BASO % 0.4 % (0.0-2.0); EOS % 0.6 % (0.0-4.0); GRAN # 5.4 K/mm3 (1.4-6.5); GRAN % 78.1 % (42.2-75.2); HEMOGLOBIN 10.2 g/dl (12.5-16.0); LYMPH # 0.9 K/mm3 (1.2-3.4); LYMPH % 13.2 % (20.0-51.0); MEAN CELL VOLUME 79 fl (80.0-100.0); MEAN CORPUSCULAR HEMOGLOBIN 24 pg (27-31); MEAN CORPUSCULAR HGB CONC 31 g/dl (33.0-37.0); MEAN PLATELET VOLUME 10.7 fl (7.4-10.4); MONO # 0.5 K/mm3 (0.1-0.6); MONO % 7.4 % (1.7-9.3); PLATELET COUNT 342 K/mm3 (130-400); REDCELL DISTRIBUTION WIDTH-CV 21.6 % (11.5-14.5)
[2022-05-14 06:42] LABS: ALBUMIN 1.9 gm/dL (3.4-4.8); C-REACTIVE PROTEIN 7.41 mg/dL (0.00-0.50); CALCIUM 8.1 mg/dL (8.4-10.2); CREATININE, serum 0.52 mg/dL (0.57-1.11); MAGNESIUM 1.4 mg/dL (1.6-2.6); PHOSPHOROUS 2.5 mg/dL (2.3-4.7)
[2022-05-14 06:45] LABS: POTASSIUM 2.9 mmol/L (3.5-4.5)
--- NOTE | 2022-05-14 12:05 | NUR ---
Preparing to insert a central line. Patient yelling and cursing at staff. Attempts to hit staff when touched. Will increase precedex per Dr. Jewell to assist with tolerating central line insertion.
--- NOTE | 2022-05-14 17:45 | NUR ---
Patient yelling in bed and restless; precedex increased and continues to be agitated. Will not keep oxygen on her face despite multiple attempts and education on need for supplemental o2. 02 saturations mid 80's on RA. Patient's respirations also appear more labored than previous assessment. Hospitalist notified and will obtain a chest CT. Will administer PRN dose of ativan for agitation prior to CT.
--- NOTE | 2022-05-14 18:29 | NUR ---
Reported chest ct results to the hospitalist. Awaiting further orders.
--- NOTE | 2022-05-14 22:27 | NUR ---
PT HAS HAD OVER 2L URINE OUTPUT SINCE LASIX ADMINISTRATION AROUND 1830. LUNG SOUNDS CLEAR AT THIS TIME, PT'S WORKING OF BREATHING NOTABLY IMPROVED. REMAINS ON OXYMASK AT THIS TIME.
[2022-05-15] VITALS (984 sets, daily range): BP systolic 76–131; BP diastolic 48–85; PULSE 60–90; TEMP 97.3–98; O2SAT 79–100
--- NOTE | 2022-05-15 | NUR ---
PT BECOMING AGITATED IN BED WITH NOTED INCREASED WORK OF BREATHING. INCREASED ADVENTITIOUS BREATH SOUNDS NOTED. NOTIFIED PROVIDER, AGREES TO GIVE PREVIOUSLY SCHEDULED LASIX NOW. WILL ALSO GIVE VERSED PER PRN ORDER FOR AGITATION. WILL CONTINUE TO MONITOR.
[2022-05-15 05:35] LABS: BASO % 0.2 % (0.0-2.0); EOS % 0.2 % (0.0-4.0); GRAN # 7.1 K/mm3 (1.4-6.5); GRAN % 77.8 % (42.2-75.2); HEMOGLOBIN 11.4 g/dl (12.5-16.0); LYMPH # 1.3 K/mm3 (1.2-3.4); LYMPH % 14.1 % (20.0-51.0); MEAN CELL VOLUME 77 fl (80.0-100.0); MEAN CORPUSCULAR HEMOGLOBIN 24 pg (27-31); MEAN CORPUSCULAR HGB CONC 32 g/dl (33.0-37.0); MEAN PLATELET VOLUME 10.6 fl (7.4-10.4); MONO # 0.7 K/mm3 (0.1-0.6); MONO % 7.5 % (1.7-9.3); PLATELET COUNT 343 K/mm3 (130-400); RED BLOOD COUNT 4.68 M/mm3 (4.10-5.30)
[2022-05-15 05:41] LABS: HEMATOCRIT 36.1 % (37.0-47.0)
[2022-05-15 06:00] LABS: CALCIUM 8.4 mg/dL (8.4-10.2); CREATININE, serum 0.6 mg/dL (0.57-1.11); MAGNESIUM 1.7 mg/dL (1.6-2.6); PHOSPHOROUS 2.5 mg/dL (2.3-4.7); POTASSIUM 3.2 mmol/L (3.5-4.5)
--- NOTE | 2022-05-15 07:00 | NUR ---
BEDSIDE REPORT RECEIVED FROM NAILA BARRIOS. PT IN MITTENS DUE TO CONFUSION AND PULLING AT LINES. PT RESTING CONFORTABLY AT THS TIME; NO S/S DISCOMFORT.
--- NOTE | 2022-05-15 10:52 | NUR ---
food and drink factory workers contacted Attila White's paid caregiver, Latricia, and requested that she come and visit with patient to gain information on patient's sons. Latricia stated that the patient has not disclosed any information about her sons and she is willing to help find out any information possible.
--- NOTE | 2022-05-15 12:00 | NUR ---
Latricia with [facility] is meeting with patient and advises that she is not Latricia Adamson that patient listed as DPOA for health care on 12/10/2019. Latricia states that she does not know anything about patient's sons. Worker contacted [facility] police and requested that they attempt to locate patient's 3 sons, Luciano, Miguelangel, and Iftikhar.
--- NOTE | 2022-05-15 12:49 | NUR ---
This SW and SW sup. Toshia Porter meet with Latricia from [facility] [place]. Latricia is not aware of where the patients son's live or contact information for them. She verbalizes to not knowing or working with Latricia Adamson who is designated as the patients DPOA-HC. Latricia contacted [facility] [place] while at bedside to obtain any contact information and the agency does not have any. This SW makes contact with the patients DPOA-HC Latricia Adamson. She states that she had to quit working for the patient approx. 3 years ago are the "emotional roller coaster she put me through". Latricia verbalizes that she told the patient that she did not wish to be her DPOA-HC and to not establish her as her agent. When asked if she was willing to make decisions on the patients behalf, Latricia verbalizes that she is not willing to make desicions for the patient. She has no information on the patients sons, but states that a long time ago, the patient used to lives in [place]. Phone call made to hospitalist with update. Phone call made to the [place] police department to attempt to locate next of kin. This phone number left with agency.
--- NOTE | 2022-05-15 14:45 | NUR ---
PT MADE COMFORT CARE BY DR. SEAMAN AND DR. WILSON. ALL DRIPS TURNED OFF AT THIS TIME. O2 VIA NASAL CANNULA D/C'D. PT GIVEN PRN MORPHINE FOR COMFORT.
--- NOTE | 2022-05-15 15:02 | NUR ---
Patient now comfort care per two signing physicians. Latricia Destini ([phone]) with [facility] leaves the unit. Provided us with the patient ins. care managers name:Emily ([phone]) along with her card.
--- NOTE | 2022-05-15 15:48 | NUR ---
Phone call received from the [place] police department stating that they were on their way to the home of Luciano Alvarez to make contact. Officer called back stating that he attempted multiple times to make contact and was not able to reach Luciano. Officer stated he left his business card on Luciano's truck to call him. Both my phone number and the phone number to dye house supervisor left with officer. Mena Castellanos contacted about possible assistance from his islam on paying for the creamation. Fabio states they have helped individuals in the past and to give him a call when the patient passes. ICU director updated.
--- NOTE | 2022-05-15 15:53 | NUR ---
Festus, Adult Protective Services, called this worker. mud worker provided update. Festus said he would try to see patient this date.
--- NOTE | 2022-05-15 20:35 | NUR ---
REPORT CALLED TO CHRISTOPHER YOO. ALL QUESTIONS ASWERED.
--- NOTE | 2022-05-15 21:00 | NUR ---
PT TRANSFERED TO 326. AP YOO NOTIFIED. CHART AND BELONGING TRANSFERED.
--- NOTE | 2022-05-16 00:31 | NUR ---
PATIENT UP FROM ICU TO ROOM 326. AGITATED AT THAT TIME FROM TRANSFER AND WAS DOSED WITH ATIVAN IV. SEE EMAR FOR CONTINUED MEDICATION ADMINISTRATION. PATIENT IS COMFORT CARES. NOTIFIED MICHAEL FUENTES THAT ORDERS HAD CONTINUED AT TRANSFER AND ORDER FOR COMFORT CARES AND DC EXTRA ORDERS. HERRON TO DD WITH MINIMAL OUTPUT. L SUBCLAVIAN TRIPLE LUMEN CATHETER PATENT WITH GOOD BLOOD RETURN. SOME BREAKDOWN TO INSIDE OF L ANKLE. BED ALARM ON. MED RX NOT COMPLETED PATIENT NOT ORIENTED.
--- NOTE | 2022-05-16 09:24 | NUR ---
Initial visit; Niurka woke up as Rn First Assist held her hands and prayed for her. Ivania unable to speak pointed to her tongue and showed Rn First Assist. Her tongue looked extremely sore with the top layer peeling. Rn First Assist said she would ask her nurse if she could have some salve on her lips and maybe something to make her tongue feel better. She continued to make a sighing/crying sound. Rn First Assist alerted her nurse and thanked him for checking on Ivania who is on Palliative Care at this time.
--- NOTE | 2022-05-16 09:57 | NUR ---
PT CALLING OUT. IV HALDOL GIVEN PER ORDERS FOR UNRELIVED AGITATION.
--- NOTE | 2022-05-16 11:20 | NUR ---
PT SHOWING INCREASING AGITATION. IV ATIVAN AND MORPHINE ORDERED.
--- NOTE | 2022-05-16 16:00 | NUR ---
Property Analyst contacted [facility], where patient previously resided and they had no contact information for next of kin. SW attempted contact with several numbers found online for Luciano Alvarez with no success. SW also contacted [place] Police Department as a former address listed online for Luciano was in [place]. SW attempted contact at the number [employer] had for Luciano, but it was disconnected. An officer went to patient's old address and Luciano could not be located. Case was staffed with Hospitalist team and Specialties Operator and Guardianship will be pursued as patient will need placement in a manager long term care care facility. Patient has dementia and is not alert and oriented at this time to make medical decisions for herself.
--- NOTE | 2022-05-16 21:50 | NUR ---
SHIFT REPORT FROM JOHN YOO. PATIENT IN BED ON ROOM ENTRY. NOT ALERT OR ORIENTED BUT IS AROUSABLE WHEN TOUCHED. IS INCREASINGLY AGITATED AND GRIMACING AND MOANING AT SHIFT CHANGE, PRN HALDOL GIVEN WITH LITTLE RELIEF OF AGITATION AND PRN MORPHINE AND ATIVAN WERE GIVEN ADDITIONALLY. PATIENT IS CURRENTLY RESTING COMFORTABLY.
--- NOTE | 2022-05-16 22:43 | NUR ---
Received phone called from Sgt. Bethel Benito of the [place] [employer]. stating that patient son Luciano Alvarez had been located and he has an updated phone number for us to call to talk with son. Spoke with ALFREDO Lee. Rosa will talk with family shortly. Family updated. Luciano Alavrez [phone]
--- NOTE | 2022-05-17 09:58 | NUR ---
Follow-up visit; Ivania doesn't seem to be as uncomfortable as she was yesterday. offered a [place] from [facility]: [phone].
--- NOTE | 2022-05-17 16:18 | NUR ---
Paint And Table Edger, Rosa faxed referral to [facility]. Frederic at [facility] contacted this SW and advised they can likely accept tomorrow once they have either patient's PCP or their anesthesiology medical doctor sign off on her orders. ERNA was contacted by patient's son, Luciano Alvarez (ph#[phone]). Luciano advised he has not seen his mother in over 30 years as he grew up in foster care. Luciano stated he also has no contact information for his two brothers as they were during childhood and he has had no communication with them. Initially, Luciano requested to bring patient home with him and care for her in his home. Luciano stated his of cancer and he has caregiving experience. After discussion with Hospitalist and Risk Management, ERNA advised Luciano that patient would not tolerate travel to [place] at this time. With that information, Luciano would be agreeable to discharge to [facility]. Discharge Plan: [facility]
--- NOTE | 2022-05-17 22:58 | NUR ---
SHIFT REPORT FROM JOHN YOO. PATIENT IN BED ON ROOM ENTRY. REMAINS ON COMFORT CARES. SEE EMAR FOR MED ADMINISTRATION.
--- NOTE | 2022-05-18 08:00 | NUR ---
PATIENT IS COMFORT CARES WITH PLAN TO TRANSFER TO [facility] TODAY. NON-RESPONSIVE WITH OCCATIONAL MOANS AND GRIMACING WITH MOVEMENT. GAVE PRN ATIVAN & MORPHINE. LEFT SUBCL. TRIPLE LUMEN TO INT. HERRON TO DD WITH SMALL AMOUNTS OF ANDRA COLORED URINE NOTED. NOTED SL DISCOLORED EXTREMITIES, DUSKY APPEARANCE. SEE COMFORT CARE ORDERS.
[2022-05-18] MEDS ORDERED: SYSTANE 0.4%-0.1 SOL OU ×3 (09:24→09:46)
[2022-05-18] MEDS ORDERED: DULCOLAX S10 MG/SUPP RC ×3 (09:24→09:46)
[2022-05-18] MEDS ORDERED: TRANSDERM-0.5 MG/21 TD (09:24)
[2022-05-18] MEDS ORDERED: ROXANOL 20MG20 MG/ML SL ×4 (09:25→09:46)
[2022-05-18] MEDS ORDERED: ATIVAN 1MG T1 MG/TAB PO ×4 (09:25→09:46)
--- NOTE | 2022-05-18 12:30 | NUR ---
PCT'S FINISHED CLEANING PATIENT UP AND GETTING HER READY FOR DISCHARGE TO HOSPICE. GAVE PRN IV MORPHINE FOR GRIMACING WITH ACTIVITY AND BEFORE DISCHARGE TRANSPORT. PATIENT RESTING IN BED.
--- NOTE | 2022-05-18 12:45 | NUR ---
HOSPITALIST CONFIRMED WITH HOSPICE HOUSE TO HAVE CENTRAL LINE DC'D BEFORE DISCHARGE. DC'D LEFT SUBCL. TRIPLE LUMEN CATH, TIP INTACT, AND PATIENT TOLERATED WELL. HELD PRESSURE, COVERED SITE WITH GAUZE & TEGADERM.
--- NOTE | 2022-05-18 12:46 | NUR ---
Engineering Secretary spoke with Frederic at [facility] who confirmed they can accept today. Dr. Longo is the accepting physician. ERNA provided discharge orders to Frederic. Transport established with [facility] and they will cook pickled meat patient at 1300. ERNA placed completed EMS forms on patient's chart. ERNA contacted patient's son, Luciano and notified him of transport time. Luciano is in agreement with discharge to the [facility]. ERNA contacted Latricia at [place] and notified her of discharge. Discharge Plan: [facility]
--- NOTE | 2022-05-18 13:10 | NUR ---
EMS IS HERE AND PATIENT DISCHARGING TO HOSPICE. CALLED REPORT TO NAILA CERON. INFO PACKET AND PERSONAL BELONGINGS GIVEN TO EMS. PATIENT DISCHARGED.
== END 2022-05-18 13:10 | disposition hospice, inpatient (51) | DRG 70 ==
LOC: COL.ER 23:27 → MEDICAL 05-13 03:10 → ICU 05-13 03:10 → EDBEDREQSVC 05-13 04:49 → EDBEDREQ 05-13 04:49 → SURG 05-15 20:58
PROVIDERS: Emergency Medicine; Internal Medicine; Student in an Organized Health Care Education/Training Program; ADMIT Internal Medicine
PROC: 05H633Z Insertion of Infusion Device into Left Subclavian Vein, Percutaneous Approach (ICD-10-PCS; principal; 2022-05-14)
DX: G93.41 Metabolic encephalopathy (principal); J96.01 Acute respiratory failure with hypoxia; A87.9 Viral meningitis, unspecified; L03.116 Cellulitis of left lower limb; R64 Cachexia; I48.91 Unspecified atrial fibrillation; I95.9 Hypotension, unspecified; I08.1 Rheumatic disorders of both mitral and tricuspid valves; Z66 Do not resuscitate; Z51.5 Encounter for palliative care; D64.9 Anemia, unspecified; R06.82 Tachypnea, not elsewhere classified; E87.6 Hypokalemia; E83.42 Hypomagnesemia; M25.50 Pain in unspecified joint; M06.9 Rheumatoid arthritis, unspecified; G89.29 Other chronic pain; R53.81 Other malaise; K59.00 Constipation, unspecified; Z79.891 Long term (current) use of opiate analgesic; Z96.651 Presence of right artificial knee joint; Z90.49 Acquired absence of other specified parts of digestive tract; Z88.0 Allergy status to penicillin
CPT/HCPCS: J0133; J0282; J0696; J1630; J1644; J1940; J2060; J2250; J2270; J2920; J3370; J3475; J3480; J3486; J7030; J7050; J7060; Q9967